=== PATIENT | female | born 1960 | race Caucasian/White ===

== ENCOUNTER → 2016-06-17 | Outpatient (CLI) | payer OTHER ==
--- NOTE | 2016-06-17 15:55 | MR ---
EXAMINATION TYPE: MR shoulder RT wo con DATE OF EXAM: 06/17/2016 3:39 PM COMPARISON: NONE HISTORY: Pain Right Shoulde for 5 years after Pt. Slipped and fell on Ice TECHNIQUE: Multiplanar multispin echo imaging of the right shoulder was performed. FINDINGS: Rotator cuff : There is heterogeneity of the supraspinatus tendon compatible with chronic tendinopath y. Partial tear bursal surface is noted at the critical zone of the supraspinatus tendon. No evidence for full-thickness or retracted tear. Remaining rotator cuff tendons are intact. Bursa: No bursal effusion or thickening is seen. Musculature: There is no muscular tear, contusion, or atrophy. Acromioclavicular joint : There are moderate degenerative changes of the acromioclavicular joint. Sma ll subacromial spur results in impingement. Osseous structures : There are no fractures or regions of abnormal bone marrow signal intensity. Long biceps tendon : The biceps tendon is normally situated within the bicipital groove. There is het erogeneity of the intra-articular portion of the biceps tendon partial tear difficult to exclude. No evidence for full-thickness tear. Glenohumeral Joint fluid : There is no glenohumeral joint effusion. Cartilage and Bone : No focal hyaline cartilage defects are noted. No Hill-Sachs, reverse Hill-Sachs, or bony Bankart lesions are seen. Labrum : There are no SLAP or soft tissue Bankart lesions. No paralabral cysts are seen. OTHER FINDINGS : none IMPRESSION: 1. Partial bursal surface tear with superimposed tendinopathy supraspinatus tendon. 2. Tendinopathy with partial tear difficult to exclude the intra-articular biceps tendon.
== END | disposition home or self-care (01) ==
LOC: RADMRIMAIN 14:34
PROVIDERS: ATTEND Nurse Practitioner Family
DX: M75.81 Other shoulder lesions, right shoulder (principal); M75.21 Bicipital tendinitis, right shoulder

== ENCOUNTER 2016-08-14 06:32 | Day surgery (SDC) | payer OTHER ==
[2016-08-13 08:50] VITALS: BMI 37.0
--- NOTE | 2016-08-13 20:35 | P.GSHP ---
History of Present Illness H&P Date: 08/14/16 CHIEF COMPLAINT: Breast cancer. HISTORY OF PRESENT ILLNESS: The patient is a 55-year-old female diagnosed with invasive breast cancer. She had a Mediport placement. She presents for Port-A-Cath removal upon completion of her chemotherapy. PAST MEDICAL HISTORY: Breast cancer. PAST SURGICAL HISTORY: Breast biopsy. CURRENT MEDICATIONS: See list. ALLERGIES: See list. SOCIAL HISTORY: No active tobacco or alcohol use. FAMILY HISTORY: Noncontributory. REVIEW OF ORGAN SYSTEMS: HEENT: Denies any trouble with vision, hearing or nosebleeds. No difficulty swallowing. BREASTS: Please see above. PHYSICAL EXAMINATION: Vital signs: Stable GENERAL: Well developed female and in no acute distress. Pleasant. HEENT: No sclera icterus. Extraocular movements grossly intact. Moist buccal mucosa. Head is atraumatic, normocephalic. Hears conversational speech. No nasal drainage. NECK: Supple without lymphadenopathy. No JV distention. CHEST: Non-labored respirations and equal bilateral excursions. CARDIOVASCULAR: Regular rate and rhythm. Palpable 2+ radial pulses. ABDOMEN: Nontender. MUSCULOSKELETAL: No clubbing, cyanosis or edema. NEUROLOGIC: No focal or lateralizing signs. PSYCH: Appropriate affect. Alert and oriented to person, place and time. ASSESSMENT: 1. Breast cancer. 2. Need for chemotherapeutic access. PLAN: 1. Agree with Port-A-Cath removal. Past Medical History Past Medical History: Cancer, Diabetes Mellitus, GERD/Reflux, Hyperlipidemia Additional Past Medical History / Comment(s): CA COLON POLYPS, RT BREAST CA, HIATAL HERNIA, NEUROPATHY IN FEET, BONE SPURS., FREQUENT DIARRHEA.,STATES RT BREAST AND AXCILLA INCISION HEALING-NO DRAINAGE., STATES PAIN "ALL OVER" AND PAIN FROM HEEL AND PATELLA SPURS AND RT SHOULDER PAIN FROM PAST INJURY. Cont.'s to have severe neck and R shoulder pain. History of Any Multi-Drug Resistant Organisms: None Reported Past Surgical History: Breast Surgery, Tonsillectomy Additional Past Surgical History / Comment(s): RT PARTIAL MASTECTOMY WITH AXILLARY LYMPH NODE DISECTION. Past Anesthesia/Blood Transfusion Reactions: No Reported Reaction, Motion Sickness Past Psychological History: Anxiety, Depression Smoking Status: Never smoker Past Alcohol Use History: Occasional Past Drug Use History: None Reported - Past Family History Mother Family Medical History: Cancer, Thyroid Disorder Medications and Allergies Home Medications Medication Instructions Recorded Confirmed Type FLUoxetine HCL [PROzac] 40 mg PO BID 01/03/15 08/14/16 History Insulin Glargine [Lantus] 50 unit SQ BID 01/03/15 08/14/16 History traZODone HCL [Desyrel] 100 mg PO HS 01/03/15 08/14/16 History Gabapentin [Neurontin] 400 mg PO BID 01/08/15 08/14/16 History metFORMIN HCL 1,000 mg PO BID 01/08/15 08/14/16 History Ibuprofen [Motrin] 200 - 400 mg PO Q6HR PRN 01/31/15 08/14/16 History Cyclobenzaprine [Flexeril] 10 mg PO DAILY 08/13/16 08/14/16 History Omeprazole [PriLOSEC] 20 mg PO AC-BID 08/13/16 08/14/16 History Oxybutynin Chloride [Ditropan XL] 10 mg PO DAILY 08/13/16 08/14/16 History Sucralfate [Carafate] 1 gm PO QID 08/13/16 08/14/16 History Allergies Allergy/AdvReac Type Severity Reaction Status Date / Time prochlorperazine edisylate Allergy Severe MUSCLE Verified 08/14/16 07:01 [From Compazine] PARALYSIS - TETANUS LIKE SYMPTOMS prochlorperazine maleate Allergy Severe MUSCLE Verified 08/14/16 07:01 [From Compazine] PARALYSIS- TETANUS LIKE SYMPTOMS adhesive AdvReac Unknown Rash/Hives Verified 08/14/16 07:01
[~2016-08-14 06:32] MED LIST: DEXAMETHASONE SOD PHOSPHATE 10 MG/ML 1 ML VIAL IV ONE; HEPARIN SODIUM,PORCINE 5,000 UNIT/ML 1 ML VIAL SQ ONE; HYDROmorphone 1 MG/ML 1 ML SYRINGE IVP PRN; LACTATED RINGERS 1,000 ML IV SCH; MIDAZOLAM 2 MG/2 ML VIAL IV PRN; ONDANSETRON 4 MG/2 ML VIAL IVP ONE; SCOPOLAMINE 1.5MG/72HR PATCH TRANSDERM ONE
[2016-08-14 07:00] VITALS: RESP 18; TEMP 98.7
[2016-08-14] MEDS ORDERED: LIDOCAINE 1% 20 ML VIAL (10MG/ML) FOR IV START SQ ONE (07:16)
[2016-08-14] MEDS ORDERED: BUPIVACAIN-EPI 0.25%-1:200,000 30 ML VIAL SQ ONE ×2 (07:17→07:43)
[2016-08-14 07:24] LABS: Glucose,Whole Blood 195 mg/dL (75-99)
[2016-08-14] MEDS: ceFAZolin 2 GM in SODIUM CHLORIDE 0.9% 100 ML IVPB ONE ×2 (07:30→07:41)
[2016-08-14] MEDS ORDERED: MIDAZOLAM 2 MG/2 ML VIAL ONE (07:30)
[2016-08-14] MEDS ORDERED: PROPOFOL 10 MG/ML 20 ML VIAL IV ONE (07:30)
[2016-08-14] MEDS ORDERED: fentaNYL (PF) 50 MCG/ML 2 ML AMP ONE (07:30)
[2016-08-14] MEDS ORDERED: NALOXONE 0.4 MG/ML 1 ML VIAL IV PRN (07:57)
[2016-08-14] MEDS ORDERED: HYDROmorphone 1 MG/ML 1 ML SYRINGE IVP PRN (07:57)
--- NOTE | 2016-08-14 07:57 | P.OP ---
Date of Procedure: 08/14/16 Description of Procedure: SURGEON: AMARIS RING MD ENERGY TRADER: None. PREOPERATIVE DIAGNOSIS: 1. Breast cancer 2. Chemotherapeutic venous access. POSTOPERATIVE DIAGNOSIS: 1. Breast cancer 2. Chemotherapeutic venous access. OPERATION: Removal of left internal jugular vein Port-A-Cath. ANESTHESIA: MAC with 30 mL 0.25% Marcaine with epinephrine. ESTIMATED BLOOD LOSS: 1 mL SPECIMENS REMOVED: Port-A-Cath COMPLICATIONS: None. INDICATIONS: The patient is a 55-year-old female who completed chemotherapy for her history of breast cancer. She now has elected for removal. Benefits and risks were described. Informed consent was obtained. DESCRIPTION OF PROCEDURE: Patient was brought to the operating room, laid in supine position. After IV sedation the chest wall on the left side was prepped and draped in standard sterile fashion. Prior to incision, a timeout protocol was confirmed with surgical team regarding the patient's name including procedures to be performed. As this was a clean case, no further antibiotics were required. Additionally, early ambulation was encouraged for DVT prophylaxis. Attention was brought to the area of the port site, whereby a total of 30 mL of 0.25% marcaine with epinephrine was infiltrated into the skin for a field block. A #15 blade was used to incise along the previous cicatrix. Electro- Bovie cautery was used to control for hemostasis. Adhesions were lysed around the Mediport. The port was extracted without sequelae. Pressure for 2 minutes was placed along the left internal jugular vein. Hemostasis was checked along the pocket of the Port-A-Cath site. The wound was closed in layers using 3-0 Vicryl for the deep subcutaneous tissues followed by 4-0 Monocryl in a running subcuticular fashion. Dermabond was applied to the skin. Once dried a 4 x 4 followed by a medium size Tegaderm was applied. At the end of the procedure needle, sponge and instrument counts were verified correct by the operating room surgical technician. The patient had tolerated the procedure well and was taken to postanesthesia care in stable condition. FINDINGS: 1. Unremarkable Port-a-cath extraction.
[2016-08-14 08:08] LABS: Glucose,Whole Blood 173 mg/dL (75-99)
[2016-08-14 08:24] VITALS: BP 154/80; PULSE 89
== END 2016-08-14 08:32 | disposition home or self-care (01) ==
LOC: OR 06:32
PROVIDERS: ATTEND Surgery Plastic and Reconstructive Surgery
DX: Z45.2 Encounter for adjustment and management of vascular access device (principal); C50.919 Malignant neoplasm of unspecified site of unspecified female breast; E11.9 Type 2 diabetes mellitus without complications; Z79.4 Long term (current) use of insulin; Z79.84 Long term (current) use of oral hypoglycemic drugs; K21.9 Gastro-esophageal reflux disease without esophagitis; G62.9 Polyneuropathy, unspecified; F41.9 Anxiety disorder, unspecified; F32.9 Major depressive disorder, single episode, unspecified; Z79.899 Other long term (current) drug therapy; Z88.8 Allergy status to other drugs, medicaments and biological substances
CPT/HCPCS: 36590; J2250; J1644; J0690; J2405; J3010; J2704

== ENCOUNTER 2016-10-15 10:40 | Day surgery (SDC) | payer OTHER ==
[2016-10-14 09:03] VITALS: BMI 36.4
[~2016-10-15 10:40] MED LIST changes: -DEXAMETHASONE SOD PHOSPHATE 10 MG/ML 1 ML VIAL IV ONE; -HYDROmorphone 1 MG/ML 1 ML SYRINGE IVP PRN; -LACTATED RINGERS 1,000 ML IV SCH; -MIDAZOLAM 2 MG/2 ML VIAL IV PRN; -ONDANSETRON 4 MG/2 ML VIAL IVP ONE; -SCOPOLAMINE 1.5MG/72HR PATCH TRANSDERM ONE; +ceFAZolin 2 GM in SODIUM CHLORIDE 0.9% 100 ML IVPB ONE
[2016-10-15] MEDS ORDERED: ACETAMINOPHEN IV (For NPO) 1,000 MG in EMPTY BAG 1 BAG IVPB ONE (11:46)
--- NOTE | 2016-10-15 11:48 | P.GSHP ---
History of Present Illness H&P Date: 10/15/16 CHIEF COMPLAINT: Cholecystitis HISTORY OF PRESENT ILLNESS: The patient is a 56-year-old female who presents with history of epigastric including right upper quadrant abdominal pain. She underwent diagnostic studies for her gallbladder. Separately her clinical picture was consistent with cholecystitis. Now she presents for surgical intervention. PAST MEDICAL HISTORY: Please see list PAST SURGICAL HISTORY: Please see list MEDICATIONS: Please see list ALLERGIES: Denies. SOCIAL HISTORY: No illicit drug use or recent tobacco use FAMILY HISTORY: Pertinent for gallbladder disease REVIEW OF ORGAN SYSTEMS: CONSTITUTIONAL: No reports of fevers or chills. HEENT: Denies any troubles with the vision or hearing. PHYSICAL EXAM: VITAL SIGNS: Afebrile vital signs stable GENERAL: Well-developed pleasant in no acute distress. HEENT: No scleral icterus. Extraocular movements grossly intact. Moist buccal mucosa. NECK: Supple without lymphadenopathy. CHEST: Unlabored respirations. Equal bilateral excursions. CARDIOVASCULAR: Regular rate regular rhythm rhythm. Distal 2+ pulses. ABDOMEN: Soft, nondistended. Tender along the epigastrium and right upper quadrant. MUSCULOSKELETAL: No clubbing, cyanosis, or edema. NEURO: Cranial nerves II to XII within normal limits. No focal or lateralizing signs. PSYCH: Alert and oriented to person, place and time. ASSESSMENT: 1. Epigastric and right upper quadrant abdominal pain 2. Chronic cholecystitis 3. Symptomatic gallstones. PLAN: 1. Will need a laparoscopic cholecystectomy possible open. Benefits and risks were described. 2. Heparin for DVT prophylaxis 5000 units. 3. Antibiotic prophylaxis. Past Medical History Past Medical History: Cancer, Diabetes Mellitus, GERD/Reflux, Skin Disorder, Thyroid Disorder Additional Past Medical History / Comment(s): SCRATCH TO ABD FROM CAT STATED SHOWED TO DR RING,HARDY COLON POLYPS, RT BREAST CA- CHEMO AND RADIATION REC, HIATAL HERNIA, NEUROPATHY IN FEET, BONE SPURS., FREQUENT DIARRHEA.,STATES RT BREAST AND AXCILLA INCISION HEALING-NO DRAINAGE., STATES PAIN "ALL OVER" AND PAIN FROM HEEL AND PATELLA SPURS AND RT SHOULDER PAIN FROM PAST INJURY. Cont.'s to have severe neck and R shoulder pain. History of Any Multi-Drug Resistant Organisms: None Reported Past Surgical History: Breast Surgery, Tonsillectomy Additional Past Surgical History / Comment(s): RT PARTIAL MASTECTOMY WITH AXILLARY LYMPH NODE DISSECTION. Past Anesthesia/Blood Transfusion Reactions: No Reported Reaction Past Psychological History: Anxiety, Depression Smoking Status: Never smoker Past Alcohol Use History: Occasional Past Drug Use History: None Reported - Past Family History Father Family Medical History: No Reported History Mother Family Medical History: Cancer, Thyroid Disorder Additional Family Medical History / Comment(s): BREAST Medications and Allergies Home Medications Medication Instructions Recorded Confirmed Type FLUoxetine HCL [PROzac] 40 mg PO BID 01/03/15 10/15/16 History Insulin Glargine [Lantus] 40 unit SQ HS 01/03/15 10/15/16 History traZODone HCL [Desyrel] 200 mg PO HS 01/03/15 10/15/16 History Gabapentin [Neurontin] 400 mg PO BID 01/08/15 10/15/16 History metFORMIN HCL 850 mg PO TID 01/08/15 10/15/16 History Ibuprofen [Motrin] 800 mg PO TID 01/31/15 10/15/16 History Omeprazole [PriLOSEC] 20 mg PO AC-BID 08/13/16 10/15/16 History Oxybutynin Chloride [Ditropan XL] 10 mg PO DAILY 08/13/16 10/15/16 History Sucralfate [Carafate] 1 gm PO QID 08/13/16 10/15/16 History Ergocalciferol [Vitamin D2] 50,000 unit PO Q7D 10/14/16 10/15/16 History Hydrocodone/Acetaminophen 1 tab PO DAILY PRN 10/14/16 10/15/16 History [Hydrocodon-Acetaminoph 7.5-325] Levothyroxine Sodium [Synthroid] 25 mcg PO QAM 10/14/16 10/15/16 History Allergies Allergy/AdvReac Type Severity Reaction Status Date / Time prochlorperazine edisylate Allergy Severe MUSCLE Verified 10/15/16 11:29 [From Compazine] PARALYSIS - TETANUS LIKE SYMPTOMS prochlorperazine maleate Allergy Severe MUSCLE Verified 10/15/16 11:29 [From Compazine] PARALYSIS- TETANUS LIKE SYMPTOMS adhesive AdvReac Unknown Rash/Hives,"paper Verified 10/15/16 11:29 tape is ok" Surgical - Exam Vital Signs Temp Pulse Resp BP Pulse Ox 99.1 F 64 16 151/86 97 10/15/16 11:42 10/15/16 11:42 10/15/16 11:42 10/15/16 11:42 10/15/16 11:42
--- NOTE | 2016-10-15 11:50 | P.HPADDEND ---
H&P Addendum H&P Addendum Date: 10/15/16 Robotic-assisted laparoscopic cholecystectomy also discussed.
[2016-10-15 11:56] LABS: Glucose,Whole Blood 126 mg/dL (75-99)
[2016-10-15] MEDS ORDERED: LACTATED RINGERS 1,000 ML IV ONE (11:57)
[2016-10-15] MEDS ORDERED: LIDOCAINE 1% 20 ML VIAL (10MG/ML) FOR IV START INTRADERMA ONE (11:58)
[2016-10-15] MEDS ORDERED: ONDANSETRON 4 MG/2 ML VIAL IVP ONE (12:01)
[2016-10-15] MEDS ORDERED: DEXAMETHASONE SOD PHOSPHATE 10 MG/ML 1 ML VIAL IV ONE (12:01)
[2016-10-15 12:05] LABS: Basophils % (A) 1 %; CH 27.9; CHCM 32.4; Eosinophils # (A) 0.2 k/uL (0-0.7); Eosinophils % (A) 2 %; HCT 39.1 % (34.0-46.0); HGB 12.5 gm/dL (11.4-16.0); Luc # (Auto) 0.11; Luc % (Auto) 1; Lymphocytes # (A) 1.4 k/uL (1.0-4.8); Lymphocytes % (A) 17 %; MCH 27.6 pg (25.0-35.0); MCV 86.4 fL (80.0-100.0); Mean Platelet Volume 6.4; Monocytes # (A) 0.3 k/uL (0-1.0); Monocytes % (A) 4 %; Neutrophils # (A) 6.1 k/uL (1.3-7.7); Neutrophils % (A) 75 %; RBC 4.53 m/uL (3.80-5.40); RDW 14.5 % (11.5-15.5); WBC 8.1 k/uL (3.8-10.6); WBC (Perox) 8.61
[2016-10-15 12:21] LABS: ALT 41 U/L (9-52); AST 32 U/L (14-36); Alkaline Phosphatase 88 U/L (38-126); Anion Gap 10 mmol/L; Blood Urea Nitrogen 10 mg/dL (7-17); Calcium 9.7 mg/dL (8.4-10.2); Carbon Dioxide 26 mmol/L (22-30); Chloride 105 mmol/L (98-107); Glucose 117 mg/dL (74-99); Non-African American GFR(MDRD) >60 (>60 ml/min/1.73 sqM); Potassium 4.3 mmol/L (3.5-5.1); Sodium 141 mmol/L (137-145); Total Bilirubin 0.7 mg/dL (0.2-1.3); Total Protein 7.3 g/dL (6.3-8.2)
[2016-10-15] MEDS ORDERED: PROPOFOL 10 MG/ML 20 ML VIAL IV ONE (13:04)
[2016-10-15] MEDS ORDERED: GLYCOPYRROLATE 0.2 MG/ML 2 ML VIAL ONE (13:04)
[2016-10-15] MEDS ORDERED: MIDAZOLAM 2 MG/2 ML VIAL ONE (13:04)
[2016-10-15] MEDS ORDERED: LIDOCAINE 1% INJ 10MG/ML (20 ML MDV) ONE (13:04)
[2016-10-15] MEDS ORDERED: SUCCINYLCHOLINE CHLORIDE 100 MG/5 ML SYR IV ONE (13:04)
[2016-10-15] MEDS ORDERED: ROCURONIUM BROMIDE 10 MG/ML 10 ML VIAL IV ONE (13:04)
[2016-10-15] MEDS ORDERED: NEOSTIGMINE 1 MG/ML 10 ML VIAL ONE (13:04)
[2016-10-15] MEDS ORDERED: fentaNYL (PF) 50 MCG/ML 2 ML AMP ONE (13:04)
[2016-10-15] MEDS ORDERED: BUPIVACAIN-EPI 0.25%-1:200,000 30 ML VIAL SQ ONE (13:40)
[2016-10-15] MEDS ORDERED: HYDROcodone/APAP 5-325MG 1 EACH TAB PO PRN (14:50)
[2016-10-15] MEDS ORDERED: NALOXONE 0.4 MG/ML 1 ML VIAL IV PRN (14:50)
[2016-10-15 14:59] VITALS: TEMP 98.4
[2016-10-15 15:02] VITALS: RESP 16
[2016-10-15] MEDS: HYDROmorphone 1 MG/ML 1 ML SYRINGE IVP ONE ×4 (15:05→15:27)
--- NOTE | 2016-10-15 15:05 | P.OP ---
Date of Procedure: 10/15/16 Description of Procedure: SURGEON: AMARIS RING MD RABBIT DRESSER: MICHAEL BASILIO PREOPERATIVE DIAGNOSES: 1. Chronic cholecystitis. 2. Diabetes type II, insulin-dependent, controlled 3. Morbid obesity due to excess calories. 4. Body mass index 36.4 5. Right upper quadrant abdominal pain. 6. Personal history of breast cancer, status post chemotherapy. POSTOPERATIVE DIAGNOSES: 1. Chronic cholecystitis. 2. Diabetes type II, insulin-dependent, controlled 3. Morbid obesity due to excess calories. 4. Body mass index 36.4 5. Right upper quadrant abdominal pain. 6. Personal history of breast cancer, status post chemotherapy. 7. Hepatomegaly. OPERATION: Robotic-assisted laparoscopic cholecystectomy, multiport ESTIMATED BLOOD LOSS: 5 mL. SPECIMENS REMOVED: Gallbladder. COMPLICATIONS: None. OPERATIVE FINDINGS: 1. Liver surface unremarkable. INDICATIONS: The patient is a 56-year-old female who presents with chronic cholelcystitis. Surgical intervention with a laparoscopic cholecystectomy was described at length including injury to the biliary tree, bleeding, infection, need for further surgery. Informed consent was obtained. Robotic assisted laparoscopic approach was described. Benefits and risks of the procedure including but not limited to bleeding, infection, injury to the biliary tree was described. Informed consent was obtained. DESCRIPTION OF PROCEDURE: Patient was brought to the operating room, placed in supine position. After general induction, the abdomen had been prepped and draped in standard sterile fashion. The robotic da Ag SI system was primed. After a timeout protocol was performed, the patient had been prepped and draped in standard sterile fashion. The robot was docked along the right lateral abdomen. The patient was repositioned in reverse Trendelenburg position. Please note prior to docking of the robot; however, a 5 mm 0 degrees laparoscopic trocar entry was performed along the epigastrium. Next, two 8 mm robotic ports were placed along the right upper abdomen. The camera 12-mm port was exchanged along the epigastrium. Another 8 mm port was placed along the left upper abdominal wall. Please note that the ports were placed at least 15 cm away from the target anatomy of the gallbladder. The liver was fairly large and heavily padded complex tear case. Using a grasper for arm 3, a long dissecting grasper for arm 2, including hook cautery for arm 1, the robotic system was docked and primed as described. Instruments were interchanged by the medical assistant internal medicine including hook cautery, Bovie cautery scissors and clip appliers. I had sat at the console. Adhesions along the infundibulum of the gallbladder and addressed using hook cautery including blunt dissection with a long forceps grasper. Additionally, the cystic artery was found anterior to the cystic duct. A small liver remnant was found encircling the body of the gallbladder. The gallbladder fundus was retracted over the dome of the liver. Initial attention was brought to the infundibulum which was gently retracted in the inferior lateral approach. Using a long forceps grasper, the cystic duct including the cystic artery were carefully skeletonized. Using a clip forepart rasper, 2 clips were placed proximally, and 2 clips were placed distally along the cystic duct and then cut with Bovie cautery. Again care was taken to avoid any injury to the biliary tree as the common bile duct was visualized during this portion of dissection. Next, the cystic artery was cauterized the cut. Electro-Bovie cautery was used to remove the gallbladder from the hepatic fossa. Decompression of the gallbladder did occur. Hemostasis was checked and found to be adequate. The robot was undocked. I re-scrubbed into the case. Using a 10 mm Endo Catch bag via the 12 mm port, the specimen was removed from the abdominal cavity. The 12 mm port site was oversewn using 0 Vicryl including a Jermaine [place] as well. Along the right upper quadrant, 1 L of normal saline was to irrigate the abdominal cavity until the aspirant was clear. All pneumoperitoneum instruments were evacuated from the abdominal cavity. The incisions were reapproximated using 4-0 Monocryl in an interrupted subcuticular fashion. Please note along the trocar sites, local anesthetic was placed as a field block prior to insertion of all instruments. Gauze including tape placed over the incisions with her ALLERGY to Dermabond. At the end of the procedure needle, sponge, and instrument count had been verified correct by the certified surgical tech/first assistant. The patient was transferred to postanesthesia care unit in stable condition. Plan - Discharge Summary Discharge Medication List FLUoxetine HCL [PROzac] 40 mg PO BID 01/03/15 [History] Insulin Glargine [Lantus] 40 unit SQ HS 01/03/15 [History] traZODone HCL [Desyrel] 200 mg PO HS 01/03/15 [History] Gabapentin [Neurontin] 400 mg PO BID 01/08/15 [History] metFORMIN HCL 850 mg PO TID 01/08/15 [History] Ibuprofen [Motrin] 800 mg PO TID 01/31/15 [History] Omeprazole [PriLOSEC] 20 mg PO AC-BID 08/13/16 [History] Oxybutynin Chloride [Ditropan XL] 10 mg PO DAILY 08/13/16 [History] Sucralfate [Carafate] 1 gm PO QID 08/13/16 [History] Ergocalciferol [Vitamin D2] 50,000 unit PO Q7D 10/14/16 [History] Hydrocodone/Acetaminophen [Hydrocodon-Acetaminoph 7.5-325] 1 tab PO DAILY PRN [History] Levothyroxine Sodium [Synthroid] 25 mcg PO QAM 10/14/16 [History]
[2016-10-15] MEDS ORDERED: KETOROLAC 30 MG/ML 1 ML VIAL IVP ONE (15:11)
[2016-10-15] MEDS ORDERED: INSULIN LISPRO (humaLOG) 300 UNIT/3 ML VIAL SQ ONE (16:03)
[2016-10-15 16:21] VITALS: BP 145/74; PULSE 78
[2016-10-15 16:26] LABS: Glucose,Whole Blood 243 mg/dL (75-99)
== END 2016-10-15 16:59 | disposition home or self-care (01) ==
LOC: OR 10:40
PROVIDERS: ATTEND Surgery Plastic and Reconstructive Surgery
DX: K81.1 Chronic cholecystitis (principal); E11.9 Type 2 diabetes mellitus without complications; Z79.4 Long term (current) use of insulin; E66.01 Morbid (severe) obesity due to excess calories; Z68.35 Body mass index [BMI] 35.0-35.9, adult; Z85.3 Personal history of malignant neoplasm of breast; Z92.21 Personal history of antineoplastic chemotherapy; Z85.038 Personal history of other malignant neoplasm of large intestine; R16.0 Hepatomegaly, not elsewhere classified; K21.9 Gastro-esophageal reflux disease without esophagitis; E07.9 Disorder of thyroid, unspecified; Z79.1 Long term (current) use of non-steroidal anti-inflammatories (NSAID); Z79.899 Other long term (current) drug therapy; Z88.8 Allergy status to other drugs, medicaments and biological substances; Z91.09 Other allergy status, other than to drugs and biological substances
CPT/HCPCS: 47562; 88304; 80053; 85025; J2250; J1644; J1100; J2710; J0690; J2405; J2001; J3010; J1885; J1170; J0131; J0330; J2704

== ENCOUNTER → 2018-01-17 | Outpatient (CLI) | payer OTHER ==
--- NOTE | 2018-01-17 22:43 | MR ---
EXAMINATION TYPE: MR brain wo/w con DATE OF EXAM: 01/17/2018 COMPARISON: NONE HISTORY: Memory loss (R 41.3) per order. Chronic neck and back pain with dizziness per patient. Histo ry of breast cancer. TECHNIQUE: Multiplanar, multisequence images of the brain and brainstem is performed without and with IV contras t, utilizing Neck and Back Pain, Gadavist 12ml mL intravenous Gadavist . FINDINGS: Diffusion weighted images demonstrate no evidence of a recent infarct or other diffusion ab normality. There is no extra-axial fluid collection or significant white matter signal abnormality. The ventricular system and cisternal spaces are normal in size and appearance. The brain volume is age appropriate. Midline structures demonstrate normal morphology. The craniocervical junction appears within normal limits. Post contrast images demonstrate no abnormal enhancement. The dural venous sinuses appear pa tent. The visualized sinuses are clear and the globes are intact. Some increased fluid signal right m astoid air cells is present axial image 7. IMPRESSION: No evidence of a recent infarct. No suspicious enhancing masses identified. Possible righ t-sided mild mastoiditis, clinical correlation recommended otherwise unremarkable study.
== END | disposition home or self-care (01) ==
LOC: RADMRIMAIN 16:25
PROVIDERS: ATTEND Psychiatry & Neurology Neurology
DX: R41.3 Other amnesia (principal); Z13.89 Encounter for screening for other disorder
CPT/HCPCS: 82565; 70553; 36415; A9581

== ENCOUNTER → 2018-02-21 | Outpatient (CLI) | payer OTHER ==
[2018-02-17 15:44] VITALS: BMI 37.3
[2018-02-21 13:56] VITALS: BP 124/74; PULSE 81; RESP 16
--- NOTE | 2018-02-21 14:23 | P.CONS ---
History of Present Illness - Reason for Consult Consult date: 02/21/18 - Chief Complaint Widespread body pain but mostly neck and lower back pain - History of Present Illness This is a 57-year-old female with history of chronic neck and lower back pain. She also has a history of breast carcinoma that was treated surgically and by chemotherapy and radiation in 2016. The patient had met seems to be cervical medial branch block by a different clinic clinic which gave her good relief of pain however the patient changed her pain care doctor to her "dislike" of the pain physician. The patient states that her pain gets worse by activities and improves by rest. The pain wakes her up at night. She also feels numbness in her legs below the knee level, she does mention that she has diabetes and possible diuretic peripheral neuropathy. Her neck pain radiates to the shoulders and her lower back pain radiates to the feet bilaterally. She does have history of stress incontinence for urine. Past Medical History Past Medical History: Cancer, Diabetes Mellitus, GERD/Reflux, Hypertension, Thyroid Disorder Additional Past Medical History / Comment(s): HX CA COLON POLYPS, RT BREAST CA- CHEMO AND RADIATION, HIATAL HERNIA, NEUROPATHY IN FEET, BONE SPURS, FREQUENT DIARRHEA. STATES PAIN "ALL OVER" AND PAIN FROM HEEL AND PATELLA SPURS AND RT SHOULDER PAIN FROM PAST INJURY. Cont.'s to have severe neck AND BACK PAIN , URINARY INCONTINENCE History of Any Multi-Drug Resistant Organisms: None Reported Past Surgical History: Breast Surgery, Cholecystectomy, Tonsillectomy Additional Past Surgical History / Comment(s): RT PARTIAL MASTECTOMY WITH AXILLARY LYMPH NODE DISSECTION. Past Anesthesia/Blood Transfusion Reactions: No Reported Reaction Smoking Status: Never smoker - Past Family History Father Family Medical History: No Reported History Mother Family Medical History: Cancer, Thyroid Disorder Additional Family Medical History / Comment(s): BREAST Medications and Allergies Home Medications Medication Instructions Recorded Confirmed Type FLUoxetine HCL [PROzac] 40 mg PO QAM 01/03/15 02/21/18 History Insulin Glargine [Lantus] 50 unit SQ HS 01/03/15 02/21/18 History traZODone HCL [Desyrel] 200 mg PO HS 01/03/15 02/21/18 History Omeprazole [PriLOSEC] 20 mg PO AC-BID 08/13/16 02/21/18 History Oxybutynin Chloride [Ditropan XL] 10 mg PO DAILY 08/13/16 02/21/18 History Ergocalciferol [Vitamin D2] 50,000 unit PO WE 10/14/16 02/21/18 History Hydrocodone/Acetaminophen 1 tab PO BID 10/14/16 02/21/18 History [Hydrocodon-Acetaminoph 7.5-325] Levothyroxine Sodium [Synthroid] 25 mcg PO QAM 10/14/16 02/21/18 History Aspirin [Adult Low Dose Aspirin EC] 81 mg PO DAILY 02/17/18 02/21/18 History Gabapentin 600 mg PO QID 02/17/18 02/21/18 History Insulin Aspart [NovoLOG Flexpen] 15 units SQ AC-TID 02/17/18 02/21/18 History Metoprolol 25 mg PO DAILY 02/17/18 02/21/18 History lamoTRIgine [LaMICtal] 150 mg PO DAILY 02/17/18 02/21/18 History Allergies Allergy/AdvReac Type Severity Reaction Status Date / Time prochlorperazine edisylate Allergy Severe MUSCLE Verified 02/21/18 13:42 [From Compazine] PARALYSIS - TETANUS LIKE SYMPTOMS prochlorperazine maleate Allergy Severe MUSCLE Verified 02/21/18 13:42 [From Compazine] PARALYSIS- TETANUS LIKE SYMPTOMS adhesive AdvReac Unknown Rash/Hives,"paper Verified 02/21/18 13:42 tape is ok" Physical Exam Vitals: Vital Signs Pulse Resp BP Pulse Ox 02/21/18 13:46 81 16 124/74 94 L - Constitutional General appearance: morbidly obese - EENT Eyes: PERRLA - Respiratory Respiratory: bilateral: CTA - Cardiovascular Rhythm: regular Heart sounds: normal: S1, S2 - Neurologic Neuro exam of the upper extremities showed normal and symmetrical muscle strength however she has absent right biceps reflex and normal left biceps reflex and normal triceps reflexes bilaterally. She has decreased range of motion of the cervical spine due to her pain Compression test of the cervical spine did not elicit any radicular pain She has tenderness in the cervical paravertebral area and more in the trapezius muscles bilaterally Neuro exam of the lower extremities showed normal and symmetrical deep tendon reflexes except for absent right ankle reflex. She has normal muscle strength bilaterally. She has tenderness in the lumbar paravertebral area bilaterally more on the right side than the left side. Straight leg raising test negative bilaterally. Neurologic: CNII-XII intact - Psychiatric Psychiatric: A&O x's 3, appropriate affect, intact judgment & insight Assessment and Plan Assessment: 57-year-old female with chronic widespread body pain but mostly in the neck and lower back and the following diagnoses Morbid obesity diabetes Possible peripheral diabetic neuropathy History of breast carcinoma with treatment with chemotherapy and radiation in 2016 Lumbar and cervical spondylosis without myelopathy Plan: The patient may benefit from getting diagnostic cervical and lumbar medial branch blocks, however she is in the middle of physical therapy for her neck and lower back pain and I would like her to finish her physical therapy before we reevaluate her for the above-mentioned procedures. Also meanwhile we will try to get her medical records from her previous pain clinic. The patient uses [facility] for her pain and she gets prescription from her family physician for that.
== END | disposition home or self-care (01) ==
LOC: PNWHC3 13:07
PROVIDERS: ATTEND Anesthesiology
DX: G89.29 Other chronic pain (principal); M54.5 Low back pain; M54.2 Cervicalgia; M47.816 Spondylosis without myelopathy or radiculopathy, lumbar region; M47.812 Spondylosis without myelopathy or radiculopathy, cervical region; E66.01 Morbid (severe) obesity due to excess calories; E11.9 Type 2 diabetes mellitus without complications; K21.9 Gastro-esophageal reflux disease without esophagitis; N39.3 Stress incontinence (female) (male); E07.9 Disorder of thyroid, unspecified; K44.9 Diaphragmatic hernia without obstruction or gangrene; I10 Essential (primary) hypertension; Z92.21 Personal history of antineoplastic chemotherapy; Z92.3 Personal history of irradiation; Z85.038 Personal history of other malignant neoplasm of large intestine; Z90.49 Acquired absence of other specified parts of digestive tract; Z90.89 Acquired absence of other organs; Z85.3 Personal history of malignant neoplasm of breast; Z90.11 Acquired absence of right breast and nipple; Z79.4 Long term (current) use of insulin; Z79.891 Long term (current) use of opiate analgesic; Z79.82 Long term (current) use of aspirin; Z79.899 Other long term (current) drug therapy; Z88.8 Allergy status to other drugs, medicaments and biological substances; Z91.048 Other nonmedicinal substance allergy status; Z68.37 Body mass index [BMI] 37.0-37.9, adult
CPT/HCPCS: 99211

== ENCOUNTER → 2018-03-23 | Outpatient (CLI) | payer OTHER ==
[2018-03-23 15:35] VITALS: BP 139/71; PULSE 70; RESP 18; TEMP 98.4
--- NOTE | 2018-03-24 14:52 | P.PAINPG ---
Subjective Progress Note Date: 03/23/18 At this is 57 years old female who was seen a few weeks ago at our pain clinic, and she was taken was with cervical spondylosis and lumbar spondylosis, she came in for follow-up visit and she brought with her her medical records, and I reviewed her medical record showed patient had nerve conduction study and showed the patient had diffuse motor and sensory polyneuropathy in the lower extremities, and L4 V nerve root irritation, and patient had also bilateral median nerve compression, and C4 5 radiculopathy, patient had the C4 5 radiculopathy and cervical spondylosis, she had MRI of the lumbar spine done at [facility] and it showed multilevel L2-3 and L3 4 L4 5 and L5-S1 lumbar facet arthroplasty lumbar bulging disc disease, MRI of the cervical spine showed C3 4 C4 5 centrally bulging disc disease and cervical facet arthropathy, patient had cervical epidural steroid injections done at [facility] on multiple occasions and she had a good result and her neck pain improved, she is on a course of physical therapy and she had some improvement of her neck pain, she continued to have some numbness and tingling sensations she is diagnosed with diabetic neuropathy, and 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 She denies any motor or sensory deficit she continue to use pain medication, [place] 7.5/325 twice a day and Neurontin 600 mg every 6 hours, she denies any side effect of the medication and she reported that currently most of her pain in the low back area, the pain is constant and increases with any activity , the intensity of the pain interfering with her quality of life, the pain intensity is 6/10 increased to 10 over 10 with activity Objective - Vital Signs Vital signs: Vital Signs Temp 98.4 F 03/23/18 15:24 Pulse 70 03/23/18 15:24 Resp 18 03/23/18 15:24 BP 139/71 03/23/18 15:24 Pulse Ox Intake & Output 03/23/18 03/24/18 03/24/18 18:59 06:59 18:59 Weight 120.202 kg - Exam Physical Examinations : 1-Constitutiona : Cooperative , not in acute distress . 2-HEENT : nech ; supple , no Lymphadenopathy , normal thyroid size . eyes : no ptosis , no icterus, no photophobia . ENT : normal of hearing , normal oropharynx , no Thrush . 3- Respiratory : Chest clear to auscultations Bilaterally , no wheezing , no Rhonchi . 4- Cardiovascular : regular rate and rhythem , S1 , S2 , no S3 , no S4. 5- Gastrointestinal : abdomen soft no tenderness , bowel sounds , no organomegally . 6- Genitourinary : Defferred . 7- neurologic : Cranial nerve II to XII intact , no focal neurological deffecit . 8-psychatric : alert , oriented X 3 , appropriate affect , intact judgment and insight . 9-Lymphatic : no Lymphadenopathy . 10- musculoskeltal : Cervical Spine motor stregnth in the deltoid and biceps, normal right side , normal Left side motor stregnth biceps and the wrist extensors normal right side ,normal left side . motor stregnth in the triceps muscle . normal Right side , normal Left side deep tendon reflexes normal at the biceps , normal at Brachioradialis , normal at triceps. positive cervical facet loading test . Lumber spine moter stegnth lower extremities , thigh and legs 5/5 Right side , 5/5 Left side deep tendon reflexes : normal Knee Jerk , normal ankle Jerk positive lumber facet Loading Test Range of motion of the lumbar spine Flexion 30 degrees, extension 10 degrees strait leg raising test , positive at 60 degree Fabere test negative bilaterally Sever tenderness over the Sacroiliac joint on the R and L sides Assessment and Plan Plan: Assessment and plan= 1-cervical spondylosis Pain improved after cervical epidural steroid injections done at [facility]. 2-lumbar spondylosis with lumbar facet arthropathy without myelopathy. Patient will be scheduled for diagnostic medial branch block lumbar area at L3-4/L4 5/L5-S1 and if she had a good result we will do the radiofrequency ablation 3-diabetic neuropathy Patient currently getting prescription refills from her primary care , [place] 7.5/325 twice a day and Neurontin 600 mg every 6 hours she denies any side effect of the medication Time with Patient: Less than 30 PQRS Measure Charge Sheet Measure #130: Documentation of Current Meds in Medical Chart: Patient's medications documented in chart Measure #226: Tobacco Use: Screen & Cessation Intervention: Pt not a tobacco user Measure #111: Pneumonia Vaccination: Pneumococcal vaccine NOT administered or previously given Measure #47: Advance Care Plan: Advance care planning discussed & documented, pt chose/unable to give Measure #412: Opioid Treatment Agreement: No documentation of signed opioid treatment agreement Measure #408: Opioid Therapy Follow-up Evaluation: Patient had NO f/u eval minimum every 3 months during opioid therapy Measure #317: Preventitive Care & Scrn High Bld Press & F/U: Normal blood pressure, f/u not required Measure #128: Body Mass Index (BMI) Screening & Follow-up: BMI documented ABOVE normal parameters - f/u documented Measure #131: Pain Assessment & Follow-up: Follow-up scheduled Measure #431: Unhealthy Alcohol Use Preventative Care & Scrn: Patient not identified as an unhealthy alcohol user PQRS Narrative: Smoking Status Never smoker Do You Want the Pneumonia No Vaccine AT THIS TIME? Blood Pressure 139/71 Pain Intensity [Lower Back] 7 Hx Alcohol Use (MH) Yes: social Home Medications: Ambulatory Orders FLUoxetine HCL [PROzac] 40 mg PO QAM 01/03/15 Insulin Glargine [Lantus] 50 unit SQ HS 01/03/15 traZODone HCL [Desyrel] 200 mg PO HS 01/03/15 Omeprazole [PriLOSEC] 20 mg PO AC-BID 08/13/16 Oxybutynin Chloride [Ditropan XL] 10 mg PO DAILY 08/13/16 Ergocalciferol [Vitamin D2] 50,000 unit PO WE 10/14/16 Hydrocodone/Acetaminophen [Hydrocodon-Acetaminoph 7.5-325] 1 tab PO BID Levothyroxine Sodium [Synthroid] 25 mcg PO QAM 10/14/16 Aspirin [Adult Low Dose Aspirin EC] 81 mg PO DAILY 02/17/18 Gabapentin 600 mg PO QID 02/17/18 Insulin Aspart [NovoLOG Flexpen] 15 units SQ AC-TID 02/17/18 Metoprolol 25 mg PO DAILY 02/17/18 lamoTRIgine [LaMICtal] 150 mg PO DAILY 02/17/18 Furosemide [Lasix] 20 mg PO DAILY 03/23/18 Enalapril Maleate [Vasotec] 2.5 mg PO DAILY 03/24/18 Furosemide [Lasix] 20 mg PO DAILY PRN 03/24/18 Controlled Substance Measures - Controlled Substance Measures Is patient prescribed a controlled substance at discharge?: No When asked, does pt state using other controlled substances?: No If prescribed controlled substance>3 days was MAPS reviewed?: No If Rx opioid, was Start Talking consent form obtained?: No If opioid is for acute pain is fill amount 7 days or less?: No Was information provided regarding opioid addiction?: No
== END | disposition home or self-care (01) ==
LOC: PNWHC3 14:30
PROVIDERS: ATTEND Specialist
DX: M50.21 Other cervical disc displacement, high cervical region (principal); M47.22 Other spondylosis with radiculopathy, cervical region; M46.82 Other specified inflammatory spondylopathies, cervical region; M51.26 Other intervertebral disc displacement, lumbar region; M47.816 Spondylosis without myelopathy or radiculopathy, lumbar region; M46.86 Other specified inflammatory spondylopathies, lumbar region; E11.42 Type 2 diabetes mellitus with diabetic polyneuropathy; G62.0 Drug-induced polyneuropathy; Z85.3 Personal history of malignant neoplasm of breast; Z79.891 Long term (current) use of opiate analgesic; Z79.899 Other long term (current) drug therapy; Z98.890 Other specified postprocedural states; Z79.4 Long term (current) use of insulin; Z79.82 Long term (current) use of aspirin
CPT/HCPCS: 99211

== ENCOUNTER 2018-04-21 09:03 | Day surgery (SDC) | payer OTHER ==
[2018-04-18 15:25] VITALS: BMI 38.7
[~2018-04-21 09:03] MED LIST changes: -HEPARIN SODIUM,PORCINE 5,000 UNIT/ML 1 ML VIAL SQ ONE; +SODIUM CHLORIDE 0.9% 500 ML 500 ML IV SCH; -ceFAZolin 2 GM in SODIUM CHLORIDE 0.9% 100 ML IVPB ONE
[2018-04-21 09:34] LABS: Glucose,Whole Blood 216 mg/dL (75-99)
[2018-04-21 09:35] VITALS: RESP 16; TEMP 98.1
--- NOTE | 2018-04-21 10:16 | P.PCN ---
Date of Procedure: 04/21/18 Surgeon: Ozzie Marino Pathology: none sent Condition: stable Disposition: PACU Description of Procedure: PREOPERATIVE DIAGNOSIS : 1- Lumbar spondylosis with Facet Arthropathy without myelopathy . 2- Lumber degenerative disc disease POSTOPERATIVE DIAGNOSIS: 1- Lumbar spondylosis with Facet Arthropathy without myelopathy . 2- Lumber degenerative disc disease PROCEDURE: Diagnostic bilateral L3 -4 , L4 -5 , and L5-S1 medial branch block under fluoroscopy ANESTHESIA: Local with 1% lidocaine; IV moderate conscious sedation with Versed 2 mg . EBL: Negligible COMPLICATION: None. PROCEDURE INDICATION: Chronic low back pain secondary to Facet arthropathy unresponsive to conservative treatment. PROCEDURE DESCRIPTION: the patient was seen and identified in the preop holding area , risks and benefits and possible complications of the procedure and alternatives were discussed with the patient, and the patient agreed to proceed with the procedure and signed the consent. IV was started and vital signs monitored during the procedure and fluoroscopy was used to maximize the benefit and accuracy of the needle placement, sedation was given to decrease patient anxiety, patient was taken to the procedure room and placed in prone position vital signs monitored. The patient was brought into the procedure room and placed in prone position. Skin was prepped with Chloraprep and draped in a sterile manner. Lidocaine 1 % was used to numb the skin up at the target points that were chosen as follows : at the L5-S1 level which corresponds to the dorsal ramus of L5 the target points were at the superior medial aspect of the sacral ala on each side of the spine on the AP view of fluoroscopy, and for theL2, L3 and L4 medial branches the target points were the connection between the transverse process and the superior to go process of L3, L4 and L5 respectively on the oblique views of fluoroscopy. I used 22-gauge 5 inch Quincke spinal needles for this procedure and after contacting bone at the target points mentioned above I injected 1 mL of ropivacaine 0.5% PF . No steroids were given to this patient because of her hyperglycemia preoperatively. Patient tolerated procedure well. At the end of the procedure the needles removed and a bandage applied after the skin was cleaned the cleaning solution. patient was then taken to the recovery room in stable condition and monitored in the recovery room for 20-30 minutes and discharged home in stable condition after discharge criteria met .
[2018-04-21] MEDS ORDERED: IV FLUID CONTINUATION 200 ML IV ONE (10:20)
--- NOTE | 2018-04-21 10:34 | FL ---
EXAMINATION TYPE: FL guided pain mgmt statistic DATE OF EXAM: 04/21/2018 HISTORY: Pain Bilateral lumbar facets, 11 seconds fluro time
[2018-04-21 10:40] VITALS: BP 128/60; PULSE 64
[2018-04-21 10:49] LABS: Glucose,Whole Blood 203 mg/dL (75-99)
== END 2018-04-21 11:01 | disposition home or self-care (01) ==
LOC: ORPAIN 09:03
PROVIDERS: ATTEND Anesthesiology
DX: M47.816 Spondylosis without myelopathy or radiculopathy, lumbar region (principal); G89.29 Other chronic pain; M51.36 Other intervertebral disc degeneration, lumbar region; Z88.8 Allergy status to other drugs, medicaments and biological substances; Z91.048 Other nonmedicinal substance allergy status; E11.65 Type 2 diabetes mellitus with hyperglycemia; E66.9 Obesity, unspecified; Z68.38 Body mass index [BMI] 38.0-38.9, adult
CPT/HCPCS: 64493; 64494; 64495; J2250; J2001; 99152

== ENCOUNTER 2018-05-09 08:34 | Day surgery (SDC) | payer OTHER ==
[2018-05-05 09:07] VITALS: BMI 38.7
[2018-05-09 09:04] LABS: Glucose,Whole Blood 274 mg/dL (75-99)
[2018-05-09 09:07] VITALS: BP 128/58; PULSE 66; RESP 16; TEMP 98.5
[2018-05-09] MEDS ORDERED: LACTATED RINGERS 1,000 ML IV ONE (09:08)
[2018-05-09] MEDS ORDERED: LIDOCAINE 1% 20 ML VIAL (10MG/ML) FOR IV START INTRADERMA ONE (09:08)
--- NOTE | 2018-05-09 09:18 | P.PN ---
Progress Note - Text Progress Note Date: 05/09/18 Procedure canceled. Patient presenting today for her second medial branch block. She reports that her VAS went down from 8-6 the last medial branch block did not report very good relief. She is inquiring about whether or not she needs repeated today. She continues to have low back pain despite having medial branch block. I advised that we probably would not repeat a second medial branch blocks and she did not have good relief. I advised her follow-up in the clinic and we should go from there to figure out what else may be causing her pain.
== END 2018-05-09 09:35 | disposition home or self-care (01) ==
LOC: ORPAIN 08:34
PROVIDERS: ATTEND Hospitalist
DX: M54.5 Low back pain (principal); Z53.8 Procedure and treatment not carried out for other reasons

== ENCOUNTER → 2018-05-25 | Outpatient (CLI) | payer OTHER ==
[2018-05-25 12:28] VITALS: BP 143/78; PULSE 67; RESP 16
--- NOTE | 2018-05-25 13:04 | P.PN ---
Subjective Progress Note Date: 05/25/18 Lamar presents today for follow-up. She was last seen on procedure today after having medial branch block. On the day of the procedure she reported that she did not have a very good relief from the medial branch block previously so we did not repeat a second set her up for a follow-up. Today she presents with continued pain throughout her body she reports she has pain from the neck down all the way to her toes. The pain is nonspecific. She denies any specific numbness or tingling or specific dermatomal spread. She reports that she sees a psychiatrist for chronic depression. She also sees a neurologist. She is on multiple psychotropic medications for her pain. She reports that she's had this pain since age 17. She currently uses high-dose Neurontin, Lamictal, Prozac, [place] twice a day. She reports despite all these medications her pain persists. She denies any changes in her medical history recently or any other medication changes. She denies any frequent headaches. Objective - Vital Signs Vital signs: Vital Signs Temp Pulse 67 05/25/18 12:20 Resp 16 05/25/18 12:20 BP 143/78 05/25/18 12:20 Pulse Ox 96 05/25/18 12:20 Intake & Output 05/24/18 05/25/18 05/25/18 18:59 06:59 18:59 Weight 117.934 kg - Exam PHYSICAL EXAM: Constitutional: Awake and alert no distress Cardiovascular exam: Regular rate, no lower extremity edema, palpable pulses bilaterally Respiratory exam: No audible wheezing, no accessory muscle usage Abdominal exam: Soft nontender Muscular skeletal exam: - Cervical spine: tender to palpation bilaterally. Range of motion is not limited. Spurling is negative bilateral. Facet loading is negative bilaterally - Lumbar spine: Preserved lumbar lordosis. No changes in skin. tender palpation bilateral. Patient has full range of motion in flexion and extension as well as lateral sidebending. Straight leg raise is positive at 45. Facet loading is negative. tender over the SI joints. Tender over bilateral trochanteric bursitis, tender over bilateral medial knees. LARA Negative, Gaenselons negative, SI Joint compression negative. Neuro exam: Normal sensation bilateral upper and lower extremities. Deep tendon reflexes are 2+ bilaterally. Valle's is negative Psychiatric exam: Cooperative, good insight, sad Assessment and Plan Assessment: #1 chronic pain #2 lumbar radiculopathy #3 chronic depression Plan: After long discussion with the patient I discussed with her multiple reasons for her pain. I discussed with her that some of her pain may be related to her chronic depression. Advise us of her pain is a result of her chronic depression. Also discussed with her that she could have some organic reason for her pain. She would like to trial an lumbar epidural steroid injection at L4 5 level to see if that'll improve her overall pain.
== END | disposition home or self-care (01) ==
LOC: PNWHC3 12:12
PROVIDERS: ATTEND Hospitalist
DX: G89.29 Other chronic pain (principal); M54.16 Radiculopathy, lumbar region; F32.9 Major depressive disorder, single episode, unspecified; Z79.891 Long term (current) use of opiate analgesic; Z79.899 Other long term (current) drug therapy
CPT/HCPCS: 99211

== ENCOUNTER 2018-06-21 07:36 | Day surgery (SDC) | payer OTHER ==
[2018-06-20 11:16] VITALS: BMI 35.9
[2018-06-21 07:57] VITALS: TEMP 98.5
[2018-06-21] MEDS ORDERED: LACTATED RINGERS 1,000 ML IV ONE (07:58)
[2018-06-21] MEDS ORDERED: LIDOCAINE 1% 20 ML VIAL (10MG/ML) FOR IV START INTRADERMA ONE (07:58)
[2018-06-21 07:59] LABS: Glucose,Whole Blood 271 mg/dL (75-99)
--- NOTE | 2018-06-21 08:55 | P.PCN ---
Date of Procedure: 06/21/18 Procedure(s) Performed: PREOPERATIVE DIAGNOSIS: 1- Lumbar Degenerative Disc Diseases 2-Lumbar spondylosis with Facet arthropathy without myelopathy POSTOPERATIVE DIAGNOSIS: 1-Lumber Degenerative Disc Diseases 2-Lumbar spondylosis with Facet arthropathy without myelopathy PROCEDURE 1. Lumbar epidural steroid injection under fluoroscopic guidance at the L4-5 level. 2. Lumbar epidurogram. ANESTHESIA: Local with 1% lidocaine 3 ml and , moderate sedation with intravenous Versed 2 mg . EBL: Minimal PROCEDURE INDICATION: The patient with low back pain and radiculitis symptoms unresponsive to conservative treatment. Fluoroscopy was used to optimize visualization of the needle placement and to maximize safety. PROCEDURE DESCRIPTION / TECHNIQUE: The patient was seen and identified in the preoperative area. Risks, benefits , complications including but not limited to infections ,bleeding ,allergic reaction to the medications ,nerve damage and not complete pain releife , and alternatives were discussed with the patient. The patient agreed to proceed with the procedure and signed the consent. IV was started, and vital signs were stable. Patient was taken to the OR and time out was completed. The patient was placed in the prone position on procedure table and a pillow was placed under the abdomen to reduce lumbar lordosis. The lumbosacral area was prepped and draped in the usual sterile fashion.ere closely monitored during the procedure. Conscious sedation was used during the procedure to decrease patients anxiety. Vital signs was monitered during the entire procedure. Using anterior-posterior fluoroscopy, the L4-5 interlaminar space was identified and the skin over this site was marked and then infiltrated with 1% lidocaine subcutaneously. Subsequently, a 20-gauge Tuohy epidural needle was inserted and advanced toward the epidural space using the ``Loss of resistance technique and guided by AP and lateral fluoroscopy. The correct needle position in the epidural space was verified with the injection of 2 mL of the water soluble contrast dye Isovue 200 contrast and observing an excellent epidurogram with the epidural spread of the dye, after negative aspiration for blood and CSF and in the absence of paresthesias. Again after negative aspiration, a 6 ml mixture containing 40 mg of Depo-medrol , and 2 ml of preservative free Normal Saline, and 2 ml of preservative free lidocaine 1% solution was injected and a washout of epidurogram was seen. Needle was withdrawn intact, skin was cleansed, and bandages were applied. COMPLICATIONS: None DISPOSITION / PLANS: The patient was placed in a supine position and transferred to the recovery area in a stable condition for observation. There was no evidence of lower extremity motor or sensory deficit after the procedure. Patient was discharged from the recovery room after meeting discharge criteria. Home discharge instructions were given to the patient by the staff. The patient was reexamined prior to discharge. The patient will schedule a follow up in the clinic in 2-4 weeks. Recommend to use 6 inch Touhy needle next visit
[2018-06-21] MEDS ORDERED: IV FLUID CONTINUATION 1,000 ML IV ONE (09:01)
[2018-06-21 09:03] VITALS: RESP 18
--- NOTE | 2018-06-21 09:09 | FL ---
EXAMINATION TYPE: FL guided pain mgmt statistic DATE OF EXAM: 06/21/2018 CLINICAL HISTORY: Low back pain. TECHNIQUE: Fluoroscopy. COMPARISON: None. FINDINGS: Fluoroscopic guidance was provided during pain relief procedure performed by Dr. Maharaj . A total of 3 seconds of fluoroscopic time was utilized during the procedure and single spot fluoro scopic image is acquired. Single image acquired shows needle localization at level of L4-L5 disc spa ce. IMPRESSION: As Above.
[2018-06-21 09:24] VITALS: BP 141/67; PULSE 64
[2018-06-21 09:32] LABS: Glucose,Whole Blood 268 mg/dL (75-99)
== END 2018-06-21 09:30 | disposition home or self-care (01) ==
LOC: ORPAIN 07:36
PROVIDERS: ATTEND Specialist
DX: M51.16 Intervertebral disc disorders with radiculopathy, lumbar region (principal); M47.26 Other spondylosis with radiculopathy, lumbar region; Z88.8 Allergy status to other drugs, medicaments and biological substances; Z91.048 Other nonmedicinal substance allergy status
CPT/HCPCS: 62323; J2250; J1030; J3010; Q9966

== ENCOUNTER → 2018-07-25 | Day surgery (SDC) | payer OTHER ==
[2018-07-13 11:39] VITALS: BMI 36.6
[2018-07-25 10:10] LABS: Glucose,Whole Blood 248 mg/dL (75-99)
[2018-07-25 10:11] VITALS: RESP 18; TEMP 98.7
--- NOTE | 2018-07-25 10:25 | P.PCN ---
Date of Procedure: 07/25/18 Anesthesia: none Description of Procedure: PREOPERATIVE DIAGNOSIS: 1-lumbar radiculopathy POSTOPERATIVE DIAGNOSIS: Lumbar radiculopathy PROCEDURE 1. Lumbar epidural steroid injection under fluoroscopic guidance at the 4/5 level. 2. Lumbar epidurogram. ANESTHESIA: Local with 1% lidocaine 5 ml EBL: Minimal PROCEDURE INDICATION: The patient with low back pain and radiculitis symptoms unresponsive to conservative treatment. Fluoroscopy was used to optimize visualization of the needle placement and to maximize safety. PROCEDURE DESCRIPTION / TECHNIQUE: The patient was seen and identified in the preoperative area. Risks, benefits , complications including but not limited to infections ,bleeding ,allergic reaction to the medications ,nerve damage and incomplete pain relief , as well as alternatives to the procedure were discussed with the patient. The patient agreed to proceed with the procedure and signed the consent. IV was started, and vital signs were stable. Patient was taken to the OR and time out was completed. The patient was placed in the prone position on procedure table and a pillow was placed under the abdomen to reduce lumbar lordosis. The lumbosacral area was prepped and draped in the usual sterile fashion.ere closely monitored during the procedure. Conscious sedation was used during the procedure to decrease patients anxiety. Vital signs was monitered during the entire procedure. Using anterior-posterior fluoroscopy, the L 4/5 interlaminar space was identified and the skin over this site was marked and then infiltrated with 1% lidocaine subcutaneously. Subsequently, a 6inch 20-gauge Tuohy epidural needle was inserted and advanced toward the epidural space using the ``Loss of resistance technique and guided by AP and lateral fluoroscopy. The correct needle position in the epidural space was verified with the injection of 1 mL of the water soluble contrast dye Omnipaque 180 contrast and observing an excellent epidurogram with the epidural spread of the dye, after negative aspiration for blood and CSF and in the absence of paresthesias. Again after negative aspiration, a 4 ml mixture containing 10 mg of Dexamethasone and 3 ml of preservative free Normal Saline was injected and a washout of epidurogram was seen. Needle was withdrawn intact, skin was cleansed, and bandages were applied. COMPLICATIONS: None DISPOSITION / PLANS: The patient was placed in a supine position and transferred to the recovery area in a stable condition for observation. There was no evidence of lower extremity motor or sensory deficit after the procedure. Patient was discharged from the recovery room after meeting discharge criteria. Home discharge instructions were given to the patient by the staff. The patient was reexamined prior to discharge. The patient will schedule a follow up in the clinic in 2-4 weeks.
[2018-07-25 11:18] VITALS: BP 129/72; PULSE 76
--- NOTE | 2018-07-25 14:44 | FL ---
EXAMINATION TYPE: FL guided pain mgmt statistic DATE OF EXAM: 07/25/2018 FLUOROSCOPY Fluoroscopy time of 8 seconds was used during lumbar epidural injection. 1 image/s document/s the pr carlene.
== END ==
LOC: ORPAIN 09:49
PROVIDERS: ATTEND Hospitalist
DX: M54.16 Radiculopathy, lumbar region (principal); Z88.8 Allergy status to other drugs, medicaments and biological substances; Z91.048 Other nonmedicinal substance allergy status
CPT/HCPCS: 62323; J1100; Q9966

== ENCOUNTER → 2018-09-15 | Outpatient (CLI) | payer OTHER ==
[2018-09-15 12:58] VITALS: BP 157/90; PULSE 76; RESP 12
--- NOTE | 2018-09-15 16:08 | P.PAINPG ---
Subjective Progress Note Date: 09/15/18 This is follow-up visit for this patient with a history of severe and chronic low back pain secondary to lumbar degenerative disc disease, lumbar facet arthropathy, We have done an interventional pain procedure lumbar epidural steroid injections 2, she had 0 benefit from it, and previously with done diagnostic medial branch block lumbar area He had no benefit from it, for this reason we did not proceed with a radiofrequency ablation of the medial branch The patient currently on Percocet 7.5/325 twice a day and Neurontin 600 mg every 6 hours and Motrin 800 mg every 6 hours , she is getting prescription refill from her oncologist Dr. 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 Objective - Vital Signs Vital signs: Vital Signs Temp Pulse 76 09/15/18 12:47 Resp 12 09/15/18 12:47 BP 157/90 09/15/18 12:47 Pulse Ox 95 09/15/18 12:47 Intake & Output 09/14/18 09/15/18 09/15/18 18:59 06:59 18:59 Weight 122.47 kg - Exam Physical Examinations : -Constitutiona : Cooperative , not in acute distress . -HEENT : nech ; supple , no Lymphadenopathy , normal thyroid size . eyes : no ptosis , no icterus, no photophobia . ENT : normal of hearing , normal oropharynx , no Thrush . - Respiratory : Chest clear to auscultations Bilaterally , no wheezing , no Rhonchi . - Cardiovascula : regular rate and rhythem , S1 , S2 , no S3 , no S4. - Gastrointestina : abdomen soft no tenderness , bowel sounds , no organomegally . - Genitourinary : Defferred . - neurologic : Cranial nerve II to XII intact , no focal neurological deffecit . -psychatric : alert , oriented X 3 , appropriate affect , intact judgment and insight . -Lymphatic : no Lymphadenopathy . - musculoskeltal : Lumber spine moter stegnth lower extremities ,thigh and legs 5/5 Right side , 5/5 Left side deep tendon reflexes : normal Knee Jerk , normal ankle Jerk positive lumber facet Loading Test Range of motion of the lumbar spine Flexion 30 degrees, extension 10 degrees strait leg raising test , positive at 60 degree Fabere test positive RT and posi tive LT . Sever tenderness over the Sacroiliac joint on the R and L sides Gaenslen test positive bilaterally. Seated flexion test positive bilaterally. Assessment and Plan Plan: Assessment and plan= 1-lumbar spondylosis with lumbar facet arthropathy 2-lumbar degenerative disc disease. 3-bilateral sacroiliitis Patient had no benefit from lumbar epidural steroid injection and she had no benefit from diagnostic medial branch block lumbar area, currently most of the pain is coming from the sacroiliac joint etiology patient will be good candidate bilateral sacroiliac joint steroid injection under fluoroscopy guidance Time with Patient: Less than 30 PQRS Measure Charge Sheet Measure #130: Documentation of Current Meds in Medical Chart: Patient's medications documented in chart Measure #226: Tobacco Use: Screen & Cessation Intervention: Pt not a tobacco user Measure #111: Pneumonia Vaccination: Pneumococcal vaccine NOT administered or previously given Measure #47: Advance Care Plan: Advance care planning discussed & documented, pt chose/unable to give Measure #412: Opioid Treatment Agreement: No documentation of signed opioid treatment agreement Measure #408: Opioid Therapy Follow-up Evaluation: Patient had NO f/u eval minimum every 3 months during opioid therapy Measure #317: Preventitive Care & Scrn High Bld Press & F/U: Pre-hypertensive or hypertensive BP documented, pt will f/u with PCP Measure #128: Body Mass Index (BMI) Screening & Follow-up: BMI documented ABOVE normal parameters - f/u documented Measure #131: Pain Assessment & Follow-up: Pain positive & plan documented, Follow-up scheduled Measure #431: Unhealthy Alcohol Use Preventative Care & Scrn: Patient not identified as an unhealthy alcohol user PQRS Narrative: Smoking Status Never smoker Do You Want the Pneumonia No Vaccine AT THIS TIME? Blood Pressure 157/90 Pain Intensity [Bilateral Leg] 7 Scale Used Numeric (1 - 10) Hx Alcohol Use (MH) Yes: social Home Medications: Ambulatory Orders FLUoxetine HCL [PROzac] 80 mg PO QAM 01/03/15 Insulin Glargine [Lantus] 50 unit SQ HS 01/03/15 traZODone HCL [Desyrel] 200 mg PO HS 01/03/15 Omeprazole [PriLOSEC] 20 mg PO AC-BID 08/13/16 Oxybutynin Chloride [Ditropan XL] 10 mg PO DAILY 08/13/16 Ergocalciferol [Vitamin D2] 50,000 unit PO WE 10/14/16 Hydrocodone/Acetaminophen [Hydrocodon-Acetaminoph 7.5-325] 1 tab PO BID 10/14/16 Levothyroxine Sodium [Synthroid] 25 mcg PO QAM 10/14/16 Gabapentin 600 mg PO QID 02/17/18 lamoTRIgine [LaMICtal] 150 mg PO DAILY 02/17/18 Furosemide [Lasix] 20 mg PO DAILY 03/23/18 Enalapril Maleate [Vasotec] 2.5 mg PO DAILY 03/24/18 Metoprolol Succinate (ER) [Toprol Xl] 25 mg PO DAILY 04/06/18 Atorvastatin [Lipitor] 20 mg PO HS 05/05/18 Insulin Lispro [Admelog] 0 unit SQ AC-TID 05/05/18 Ibuprofen [Motrin Ib] 800 mg PO Q6HR PRN 07/01/18 Augmentin (Unknown Dose) 1 tab PO BID 07/21/18 Vitamin B Complex 1 each PO DAILY 07/21/18 Controlled Substance Measures - Controlled Substance Measures Is patient prescribed a controlled substance at discharge?: No
== END | disposition home or self-care (01) ==
LOC: PNWHC3 12:14
PROVIDERS: ATTEND Specialist
DX: G89.29 Other chronic pain (principal); M54.5 Low back pain; M51.36 Other intervertebral disc degeneration, lumbar region; M47.816 Spondylosis without myelopathy or radiculopathy, lumbar region; M46.86 Other specified inflammatory spondylopathies, lumbar region; M46.1 Sacroiliitis, not elsewhere classified; T45.1X5A Adverse effect of antineoplastic and immunosuppressive drugs, initial encounter; G62.9 Polyneuropathy, unspecified; Z98.890 Other specified postprocedural states; Z79.891 Long term (current) use of opiate analgesic; Z79.899 Other long term (current) drug therapy; Z79.1 Long term (current) use of non-steroidal anti-inflammatories (NSAID)
CPT/HCPCS: 99211

== ENCOUNTER 2018-09-26 09:08 | Day surgery (SDC) | payer OTHER ==
[2018-09-21 13:58] VITALS: BMI 38.0
[2018-09-26 09:25] VITALS: RESP 18; TEMP 98.8
[2018-09-26] MEDS ORDERED: LACTATED RINGERS 1,000 ML IV SCH (09:29)
[2018-09-26] MEDS ORDERED: LIDOCAINE 1% 20 ML VIAL (10MG/ML) FOR IV START INTRADERMA ONE (09:37)
[2018-09-26 09:45] LABS: Glucose,Whole Blood 155 mg/dL (75-99)
--- NOTE | 2018-09-26 10:23 | FL ---
Fluoroscopy INDICATION: Pain FINDINGS: Fluoroscopy time: 4 seconds. Images obtained: 2. IMPRESSIONS: 1. Documentation of fluoroscopy.
[2018-09-26 10:33] VITALS: BP 116/65; PULSE 68
[2018-09-26] MEDS ORDERED: IV FLUID CONTINUATION 1,000 ML IV ONE (10:42)
[2018-09-26 10:46] LABS: Glucose,Whole Blood 133 mg/dL (75-99)
--- NOTE | 2018-09-26 10:47 | P.PCN ---
Date of Procedure: 09/26/18 Procedure(s) Performed: Procedure= bilateral sacral iliac joints steroid injection under fluoroscopy g uidance Preoperative diagnosis= 1-sacroiliitis 2-lumbar degenerative disc disease 3- lumbar spondylosis with facet arthropathy Postoperative diagnosis=1-sacroiliitis 2-lumbar degenerative disc disease 3- lumbar spondylosis with facet arthropathy Complication = none Condition= stable Anesthesia= moderate sedation with intravenous Versed 2 mg , and fentanyl 50 micrograms and local infiltration with lidocaine 1% 5 mL Indication for the procedure= patient complaining of low back pain , examination was positive for severe tenderness over the sacroiliac joints bilaterally and patient diagnosed with sacroiliitis, for this reason he/ she was good candidate for sacroiliac joint steroid injection. Description of the procedure= procedure risk and benefits discussed with the patient, including but not limited, risk of infection and bleeding, and ALLERGIC reaction to the medication and not complete pain relief and patient agreed with the preceding patient taken to the operating room, placed in prone position or standard monitors applied to the patient then after induction of anesthesia back prepped with chlorhexidine 3 times , Then under strict sterile technique, first I did the right sacroiliac joint the which was identified under fluoroscopy guidance been local infiltration of the skin and subcu interstitial with lidocaine 1% then 22-gauge Quincke Needle advanced slowly under fluoroscopy and placed in the right sacroiliac joint needle placement confirmed with AP and oblique and lateral view and after appropriate needle placement confirmed and after negative aspiration, or heme , then Ropivacaine 0.5% 3 mL, and 20 mg of Depo-Medrol mixed together and injected in the right sacroiliac joint after negative aspiration patient tolerated the procedure well without any complication. Then the left sacroiliac joint steroid injection done under strict sterile technique local infiltration of the skin and subcu interstitial at the location of the left sacroiliac joint then a 22-gauge Quincke Needle advanced slowly under fluoroscopy time placed in the left sacroiliac joint, needle placement confirmed with AP and oblique and lateral view then after appropriate needle placement confirmed and after negative aspiration 0.5% Marcaine 3 mL and 20 mg of Depo-Medrol injected in the left sacroiliac joint after negative aspiration patient tolerated the procedure well that any complications and she will follow up in clinic 3 weeks
== END 2018-09-26 10:45 | disposition home or self-care (01) ==
LOC: ORPAIN 09:08
PROVIDERS: ATTEND Specialist
DX: M46.1 Sacroiliitis, not elsewhere classified (principal); M51.36 Other intervertebral disc degeneration, lumbar region; M47.816 Spondylosis without myelopathy or radiculopathy, lumbar region
CPT/HCPCS: J2250; J1030; G0260

== ENCOUNTER 2018-10-10 09:46 | Day surgery (SDC) | payer OTHER ==
[2018-10-05 15:56] VITALS: BMI 35.9
[~2018-10-10 09:46] MED LIST changes: +LACTATED RINGERS 1,000 ML IV SCH; -SODIUM CHLORIDE 0.9% 500 ML 500 ML IV SCH
[2018-10-10 10:35] VITALS: RESP 18; TEMP 98
[2018-10-10] MEDS ORDERED: LIDOCAINE 1% 20 ML VIAL (10MG/ML) FOR IV START INTRADERMA ONE (10:35)
[2018-10-10 10:42] LABS: Glucose,Whole Blood 165 mg/dL (75-99)
--- NOTE | 2018-10-10 11:51 | P.PCN ---
Date of Procedure: 10/10/18 Procedure(s) Performed: Procedure(s) Performed: Procedure= bilateral sacral iliac joints steroid injection under fluoroscopy guidance Preoperative diagnosis= 1-sacroiliitis 2-lumbar degenerative disc disease 3- lumbar spondylosis with facet arthropathy Postoperative diagnosis=1-sacroiliitis 2-lumbar degenerative disc disease 3- lumbar spondylosis with facet arthropathy Complication = none Condition= stable Anesthesia= moderate sedation with intravenous Versed 2 mg , and fentanyl 50 micrograms and local infiltration with lidocaine 1% 5 mL Indication for the procedure= patient complaining of low back pain , examination was positive for severe tenderness over the sacroiliac joints bilaterally and patient diagnosed with sacroiliitis, for this reason he/ she was good candidate for sacroiliac joint steroid injection. Description of the procedure= procedure risk and benefits discussed with the patient, including but not limited, risk of infection and bleeding, and ALLERGIC reaction to the medication and not complete pain relief and patient agreed with the preceding patient taken to the operating room, placed in prone position or standard monitors applied to the patient then after induction of anesthesia back prepped with chlorhexidine 3 times , Then under strict sterile technique, first I did the right sacroiliac joint the which was identified under fluoroscopy guidance been local infiltration of the skin and subcu interstitial with lidocaine 1% then 22-gauge Quincke Needle advanced slowly under fluoroscopy and placed in the right sacroiliac joint needle placement confirmed with AP and oblique and lateral view and after appro priate needle placement confirmed and after negative aspiration, or heme , then Ropivacaine 0.5% 3 mL, and 20 mg of Depo-Medrol mixed together and injected in the right sacroiliac joint after negative aspiration patient tolerated the procedure well without any complication. Then the left sacroiliac joint steroid injection done under strict sterile technique local infiltration of the skin and subcu interstitial at the location of the left sacroiliac joint then a 22-gauge Quincke Needle advanced slowly under fluoroscopy time placed in the left sacroiliac joint, needle placement confirmed with AP and oblique and lateral view then after appropriate needle placement confirmed and after negative aspiration 0.5% Marcaine 3 mL and 20 mg of Depo-Medrol injected in the left sacroiliac joint after negative aspiration patient tolerated the procedure well that any complications and she will follow up in clinic 3 weeks
[2018-10-10] MEDS ORDERED: IV FLUID CONTINUATION 500 ML IV ONE (11:57)
[2018-10-10 12:21] VITALS: BP 133/80; PULSE 70
--- NOTE | 2018-10-10 12:59 | FL ---
EXAMINATION TYPE: FL guided pain mgmt statistic DATE OF EXAM: 10/10/2018 HISTORY: Pain 24sec fluoro time,2 images scanned
== END 2018-10-10 12:21 | disposition home or self-care (01) ==
LOC: ORPAIN 09:46
PROVIDERS: ATTEND Specialist
DX: M46.1 Sacroiliitis, not elsewhere classified (principal); M51.36 Other intervertebral disc degeneration, lumbar region; M47.816 Spondylosis without myelopathy or radiculopathy, lumbar region; E11.9 Type 2 diabetes mellitus without complications; Z88.8 Allergy status to other drugs, medicaments and biological substances; Z91.048 Other nonmedicinal substance allergy status
CPT/HCPCS: J2250; J3301; J3010; G0260

== ENCOUNTER → 2018-11-02 | Outpatient (CLI) | payer OTHER ==
[2018-11-02 12:14] VITALS: BP 139/71; RESP 16
--- NOTE | 2018-11-02 13:26 | P.PAINPG ---
Subjective Progress Note Date: 11/02/18 This is follow-up visit for this patient with a history of severe and chronic low back pain secondary to lumbar degenerative disc disease, lumbar facet arthropathy, and sacroiliitis We have done an interventional pain procedure lumbar epidural steroid injections 2, she had 0 benefit from it, and also we have done diagnostic medial branch block lumbar area she had no benefit from it, and recently we've done bilateral sacroiliac joint steroid injection, she had very minimal benefit from it, She continued to have severe low back pain with radiation to the lower extremity mainly to the right side The patient currently on Percocet 7.5/325 twice a day and Neurontin 600 mg every 6 hours and Motrin 800 mg every 6 hours , she is getting prescription refill from her oncologist Dr. 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 Physical Examinations : -Constitutiona : Cooperative , not in acute distress . -HEENT : nech ; supple , no Lymphadenopathy , normal thyroid size . eyes : no ptosis , no icterus, no photophobia . ENT : normal of hearing , normal oropharynx , no Thrush . - Respiratory : Chest clear to auscultations Bilaterally , no wheezing , no Rhonchi . - Cardiovascula : regular rate and rhythem , S1 , S2 , no S3 , no S4. - Gastrointestina : abdomen soft no tenderness , bowel sounds , no organomegally . - Genitourinary : Defferred . - neurologic : Cranial nerve II to XII intact , no focal neurological deffecit . -psychatric : alert , oriented X 3 , appropriate affect , intact judgment and insight . -Lymphatic : no Lymphadenopathy . - musculoskeltal : Lumber spine moter stegnth lower extremities ,thigh and legs 5/5 Right side , 5/5 Left side deep tendon reflexes : normal Knee Jerk , normal ankle Jerk positive lumber facet Loading Test Range of motion of the lumbar spine Flexion 30 degrees, extension 10 degrees strait leg raising test , positive at 60 degree Fabere test positive RT and positive LT . Sever tenderness over the Sacroiliac joint on the R and L sides Gaenslen test positive bilaterally. Seated flexion test positive bilaterally. MRI of the lumbar spine= done at [facility] showed L2-3 L3 4 lumbar annular disc bulging with facet arthropathy and L4 5 right-sided paracentral disc protrusion Assessment and plan= 1-lumbar spondylosis with lumbar facet arthropathy 2-lumbar degenerative disc disease. 3-bilateral sacroiliitis Patient had no benefit from interventional pain management, she already started physical therapy and she is getting some benefit from it, patient will be referred to spine surgeon for evaluation for possible surgical interventions Objective - Vital Signs Vital signs: Vital Signs Temp Pulse Resp 16 11/02/18 12:02 BP 139/71 11/02/18 12:02 Pulse Ox 96 11/02/18 12:02 Intake & Output 11/01/18 11/02/18 11/02/18 18:59 06:59 18:59 Weight 120.202 kg PQRS Measure Charge Sheet Measure #130: Documentation of Current Meds in Medical Chart: Patient's medications documented in chart Measure #226: Tobacco Use: Screen & Cessation Intervention: Pt not a tobacco user Measure #111: Pneumonia Vaccination: Pneumococcal vaccine NOT administered or previously given Measure #47: Advance Care Plan: Advance care planning discussed & documented, pt chose/unable to give Measure #412: Opioid Treatment Agreement: No documentation of signed opioid treatment agreement Measure #408: Opioid Therapy Follow-up Evaluation: Patient had NO f/u eval minimum every 3 months during opioid therapy Measure #317: Preventitive Care & Scrn High Bld Press & F/U: Normal blood pressure, f/u not required Measure #128: Body Mass Index (BMI) Screening & Follow-up: BMI documented ABOVE normal parameters - f/u documented Measure #131: Pain Assessment & Follow-up: Pain positive & plan documented, Follow-up scheduled, Follow-up PRN Measure #431: Unhealthy Alcohol Use Preventative Care & Scrn: Patient not identified as an unhealthy alcohol user PQRS Narrative: Smoking Status Never smoker Blood Pressure 139/71 Pain Intensity [Bilateral 5 Lower Back] Scale Used Numeric (1 - 10) Hx Alcohol Use (MH) Yes: social Home Medications: Ambulatory Orders FLUoxetine HCL [PROzac] 80 mg PO QAM 01/03/15 Insulin Glargine [Lantus] 50 unit SQ HS 01/03/15 traZODone HCL [Desyrel] 200 mg PO HS 01/03/15 Oxybutynin Chloride [Ditropan XL] 10 mg PO DAILY 08/13/16 Ergocalciferol [Vitamin D2] 50,000 unit PO WE 10/14/16 Hydrocodone/Acetaminophen [Hydrocodon-Acetaminoph 7.5-325] 1 tab PO BID 10/14/16 Levothyroxine Sodium [Synthroid] 25 mcg PO QAM 10/14/16 Gabapentin 600 mg PO QID 02/17/18 lamoTRIgine [LaMICtal] 150 mg PO DAILY 02/17/18 Furosemide [Lasix] 20 mg PO DAILY 03/23/18 Enalapril Maleate [Vasotec] 2.5 mg PO DAILY 03/24/18 Atorvastatin [Lipitor] 40 mg PO HS 05/05/18 Insulin Lispro [Admelog] 0 unit SQ AC-TID 05/05/18 Ibuprofen [Motrin Ib] 800 mg PO DAILY PRN 07/01/18 Vitamin B Complex 1 each PO DAILY 07/21/18 Aspirin [Adult Low Dose Aspirin EC] 81 mg PO DAILY 09/21/18 Controlled Substance Measures - Controlled Substance Measures Is patient prescribed a controlled substance at discharge?: No
== END ==
LOC: PNWHC3 11:45
PROVIDERS: ATTEND Specialist
DX: M51.36 Other intervertebral disc degeneration, lumbar region (principal); M47.816 Spondylosis without myelopathy or radiculopathy, lumbar region; M46.96 Unspecified inflammatory spondylopathy, lumbar region; M46.1 Sacroiliitis, not elsewhere classified; Z79.899 Other long term (current) drug therapy; Z79.891 Long term (current) use of opiate analgesic; Z79.4 Long term (current) use of insulin; Z79.82 Long term (current) use of aspirin
CPT/HCPCS: 99211

== ENCOUNTER 2020-01-24 07:43 | Day surgery (SDC) | payer OTHER ==
[2020-01-19 11:08] VITALS: BMI 38.7
--- NOTE | 2020-01-24 08:07 | P.GSHP ---
History of Present Illness H&P Date: 01/24/20 CHIEF COMPLAINT: Colon screen HISTORY OF PRESENT ILLNESS: The patient is a 59-year-old female who presents for colon screen. Lower endoscopy was offered for further evaluation and management. PAST MEDICAL HISTORY: Please see list. PAST SURGICAL HISTORY: Please see list. MEDICATIONS: Please see list. ALLERGIES: Please see list. SOCIAL HISTORY: No illicit drug use FAMILY HISTORY: No reports of Crohn disease or ulcerative colitis. REVIEW OF ORGAN SYSTEMS: CONSTITUTIONAL: No reports of fevers or chills. PHYSICAL EXAM: VITAL SIGNS: Stable GENERAL: Well-developed pleasant in no acute distress. HEENT: No scleral icterus. Extraocular movements grossly intact. Moist buccal mucosa. NECK: Supple without lymphadenopathy. CHEST: Unlabored respirations. Equal bilateral excursions. CARDIOVASCULAR: Regular rate and rhythm. Distal 2+ pulses. ABDOMEN: Soft, nontender, nondistended. MUSCULOSKELETAL: No clubbing, cyanosis, or edema. ASSESSMENT: 1. Colon screen. PLAN: 1. Recommend proceeding with a lower endoscopy Past Medical History Past Medical History: Cancer, Diabetes Mellitus, GERD/Reflux, Hypertension, Musculoskeletal Disorder, Thyroid Disorder, Vascular Disorder Additional Past Medical History / Comment(s): HX CA COLON POLYPS, RT BREAST CA- CHEMO AND RADIATION, HIATAL HERNIA, NEUROPATHY IN FEET, BONE SPURS, FREQUENT Constipation. STATES PAIN "ALL OVER" AND PAIN FROM HEEL AND PATELLA SPURS AND RT SHOULDER PAIN FROM PAST INJURY. DDD; URINARY INCONTINENCE, PT STATES RECENT FALL- HER LEGS JUST GAVE OUT; STATES SOME SORES ON HER LEGS FROM ITCHING., chronic neck and back pain,Reports recent "vascular reflux" diagnosis. History of Any Multi-Drug Resistant Organisms: None Reported Past Surgical History: Breast Surgery, Cholecystectomy, Tonsillectomy Additional Past Surgical History / Comment(s): RT PARTIAL MASTECTOMY WITH AXILLARY LYMPH NODE DISSECTION. PAIN PROCEDURES Past Anesthesia/Blood Transfusion Reactions: No Reported Reaction Additional Past Anesthesia/Blood Transfusion Reaction / Comment(s): no hx blood transfusion Smoking Status: Never smoker - Past Family History Father Family Medical History: No Reported History Mother Family Medical History: Cancer, Thyroid Disorder Additional Family Medical History / Comment(s): BREAST Medications and Allergies Home Medications Medication Instructions Recorded Confirmed Type FLUoxetine HCL [PROzac] 80 mg PO QAM 01/03/15 01/19/20 History traZODone HCL [Desyrel] 200 mg PO HS 01/03/15 01/19/20 History Oxybutynin Chloride [Ditropan XL] 10 mg PO DAILY 08/13/16 01/19/20 History Ergocalciferol [Vitamin D2] 50,000 unit PO FR 10/14/16 01/19/20 History Hydrocodone/Acetaminophen 1 tab PO BID PRN 10/14/16 01/19/20 History [Hydrocodon-Acetaminoph 7.5-325] Levothyroxine Sodium [Synthroid] 25 mcg PO QAM 10/14/16 01/19/20 History Gabapentin 600 mg PO QID 02/17/18 01/19/20 History lamoTRIgine [LaMICtal] 200 mg PO QAM 02/17/18 01/19/20 History Enalapril Maleate [Vasotec] 2.5 mg PO QAM 03/24/18 01/19/20 History Atorvastatin [Lipitor] 40 mg PO HS 05/05/18 01/19/20 History Insulin Lispro [Admelog] 20 - 30 unit SQ TID-W/MEALS PRN 05/05/18 01/19/20 History Ibuprofen [Motrin Ib] 800 mg PO DAILY PRN 07/01/18 01/19/20 History Vitamin B Complex 1 each PO DAILY 07/21/18 01/19/20 History Aspirin [Adult Low Dose Aspirin EC] 81 mg PO DAILY 09/21/18 01/19/20 History Docusate [Colace] 200 mg PO DAILY 01/19/20 01/19/20 History Fluticasone Nasal [place] [Flonase 2 spr EA NOSTRIL DAILY 01/19/20 01/19/20 History Nasal [place]] Insulin Glargine,Hum.rec.anlog 55 unit SQ HS 01/19/20 01/19/20 History [Basaglar Kwikpen U-100] Omeprazole 20 mg PO BID 01/19/20 01/19/20 History Pyridoxine HCl (Vitamin B6) 100 mg PO DAILY 01/19/20 01/19/20 History [Vitamin B-6] clonazePAM [KlonoPIN] 0.25 mg PO BID PRN 01/19/20 01/19/20 History Allergies Allergy/AdvReac Type Severity Reaction Status Date / Time prochlorperazine edisylate Allergy Severe MUSCLE Verified 01/19/20 10:54 [From Compazine] PARALYSIS - TETANUS LIKE SYMPTOMS prochlorperazine maleate Allergy Severe MUSCLE Verified 01/19/20 10:54 [From Compazine] PARALYSIS- TETANUS LIKE SYMPTOMS adhesive AdvReac Unknown Rash/Hives,"paper Verified 01/19/20 10:54 tape is ok" TEGADERM Allergy Rash/Hives Uncoded 01/19/20 10:54
[2020-01-24 08:13] VITALS: TEMP 97.8
[2020-01-24 08:18] LABS: Glucose,Whole Blood 138 mg/dL (75-99)
[2020-01-24] MEDS ORDERED: LACTATED RINGERS 1,000 ML IV ONE (08:18)
[2020-01-24] MEDS ORDERED: LIDOCAINE 1% (10MG/ML) FOR IV START INTRADERMA ONE (08:19)
[2020-01-24] MEDS ORDERED: PROPOFOL 10 MG/ML 20 ML VIAL IV ONE (08:30)
--- NOTE | 2020-01-24 08:56 | P.PCN ---
Date of Procedure: 01/24/20 Description of Procedure: PREOPERATIVE DIAGNOSIS: Personal history malignant colon polyp Morbid obesity due to excess calories, BMI 38.4 Diabetes type 2, insulin-dependent POSTOPERATIVE DIAGNOSIS: Personal history malignant colon polyp Morbid obesity due to excess calories, BMI 38.4 Diabetes type 2, insulin-dependent Tubular adenoma transverse colon OPERATION: Colonoscopy to the ileocecal valve and appendiceal orifice, cecum Colonoscopy with hot snare polypectomy SURGEON: Hazel Colvin MD. ANESTHESIA: MAC. INDICATIONS: The patient is an 59-year-old male who presents with personal history of colon cancer. Last colonoscopy 5 years. Benefits and risks were described and informed consent was obtained. DESCRIPTION OF PROCEDURE: The patient had undergone Suprep. She had been brought into the operating room and laid in the left lateral decubitus position. After adequate intravenous sedation, the rectum was examined with 2% lidocaine jelly. No external hemorrhoids were encountered. The rectal tone was within normal limits. No lesions were palpated in the rectal vault. An Olympus colonoscope was advanced until the cecum, ileocecal valve and appendiceal orifice were clearly viewed. The prep was excellent. Sigmoid diverticulosis was encountered. Mid transverse tubular adenoma, 1 cm was found and snare polypectomy. No evidence of focal colitis was found. Retroflexion of the scope demonstrated grade 1 internal hemorrhoids without active bleeding or inflammation. The colon was desufflated. The patient had tolerated the procedure well. Withdrawal time was over 6 minutes. FINDINGS: Aronchick preparation quality scale 1 (1-5) Internal hemorrhoids, grade 1 No external hemorrhoids No arteriovenous malformations. Sigmoid diverticulosis Removal of 1 polyp: - Snare polypectomy mid transverse colon , 10 mm tubular adenoma No focal colitis. RECOMMENDATIONS: Repeat colonoscopy 3 years, 2022 Plan - Discharge Summary Discharge Rx Participant: No New Discharge Prescriptions: Continue FLUoxetine HCL [PROzac] 80 mg PO QAM traZODone HCL [Desyrel] 200 mg PO HS Oxybutynin Chloride [Ditropan XL] 10 mg PO DAILY Ergocalciferol [Vitamin D2 (DRISDOL)] 50,000 unit PO FR Levothyroxine Sodium [Synthroid] 25 mcg PO QAM Hydrocodone/Acetaminophen [Hydrocodone-Acetamin 7.5-325] 1 tab PO BID PRN PRN Reason: Pain lamoTRIgine [LaMICtal] 200 mg PO QAM Gabapentin 600 mg PO QID Enalapril Maleate [Vasotec] 2.5 mg PO QAM Atorvastatin [Lipitor] 40 mg PO HS Insulin Lispro [Admelog] 20 - 30 unit SQ TID-W/MEALS PRN PRN Reason: blood sugar scale Ibuprofen [Motrin Ib] 800 mg PO DAILY PRN PRN Reason: Pain Vitamin B Complex 1 each PO DAILY Aspirin [Adult Low Dose Aspirin EC] 81 mg PO DAILY Pyridoxine HCl (Vitamin B6) [Vitamin B-6] 100 mg PO DAILY Omeprazole 20 mg PO BID Docusate [Colace] 200 mg PO DAILY Fluticasone Nasal [place] [Flonase Nasal [place]] 2 spr EA NOSTRIL DAILY Insulin Glargine,Hum.rec.anlog [Basaglar Kwikpen U-100] 55 unit SQ HS clonazePAM [KlonoPIN] 0.25 mg PO BID PRN PRN Reason: Anxiety Discharge Medication List FLUoxetine HCL [PROzac] 80 mg PO QAM 01/03/15 [History] traZODone HCL [Desyrel] 200 mg PO HS 01/03/15 [History] Oxybutynin Chloride [Ditropan XL] 10 mg PO DAILY 08/13/16 [History] Ergocalciferol [Vitamin D2 (DRISDOL)] 50,000 unit PO FR 10/14/16 [History] Hydrocodone/Acetaminophen [Hydrocodone-Acetamin 7.5-325] 1 tab PO BID PRN 10/14/16 [History] Levothyroxine Sodium [Synthroid] 25 mcg PO QAM 10/14/16 [History] Gabapentin 600 mg PO QID 02/17/18 [History] lamoTRIgine [LaMICtal] 200 mg PO QAM 02/17/18 [History] Enalapril Maleate [Vasotec] 2.5 mg PO QAM 03/24/18 [History] Atorvastatin [Lipitor] 40 mg PO HS 05/05/18 [History] Insulin Lispro [Admelog] 20 - 30 unit SQ TID-W/MEALS PRN 05/05/18 [History] Ibuprofen [Motrin Ib] 800 mg PO DAILY PRN 07/01/18 [History] Vitamin B Complex 1 each PO DAILY 07/21/18 [History] Aspirin [Adult Low Dose Aspirin EC] 81 mg PO DAILY 09/21/18 [History] Docusate [Colace] 200 mg PO DAILY 01/19/20 [History] Fluticasone Nasal [place] [Flonase Nasal [place]] 2 spr EA NOSTRIL DAILY 01/19/20 [History] Insulin Glargine,Hum.rec.anlog [Basaglar Kwikpen U-100] 55 unit SQ HS 01/19/20 [History] Omeprazole 20 mg PO BID 01/19/20 [History] Pyridoxine HCl (Vitamin B6) [Vitamin B-6] 100 mg PO DAILY 01/19/20 [History] clonazePAM [KlonoPIN] 0.25 mg PO BID PRN 01/19/20 [History] Follow up Appointment(s)/Referral(s): Hazel Colvin MD [STAFF PHYSICIAN] - As Needed Patient Instructions/Handouts: Diverticulosis Diet (GEN), Diverticulosis (DC), Colorectal Polyps (DC) Activity/Diet/Wound Care/Special Instructions: Repeat colonoscopy 3 years, 2022 Discharge Disposition: HOME SELF-CARE
[2020-01-24 09:01] LABS: Glucose,Whole Blood 155 mg/dL (75-99)
[2020-01-24 09:10] VITALS: BP 137/76; PULSE 64; RESP 19
== END 2020-01-24 09:48 | disposition home or self-care (01) ==
LOC: ORWHC2ENDO 07:43
PROVIDERS: ATTEND Surgery Plastic and Reconstructive Surgery
DX: Z12.11 Encounter for screening for malignant neoplasm of colon (principal); D12.3 Benign neoplasm of transverse colon; K57.30 Diverticulosis of large intestine without perforation or abscess without bleeding; K64.0 First degree hemorrhoids; Z85.038 Personal history of other malignant neoplasm of large intestine; K21.9 Gastro-esophageal reflux disease without esophagitis; E11.40 Type 2 diabetes mellitus with diabetic neuropathy, unspecified; E66.01 Morbid (severe) obesity due to excess calories; E07.9 Disorder of thyroid, unspecified; Z68.38 Body mass index [BMI] 38.0-38.9, adult; Z86.010 Personal history of colon polyps; E11.9 Type 2 diabetes mellitus without complications; K44.9 Diaphragmatic hernia without obstruction or gangrene; G89.29 Other chronic pain; M54.2 Cervicalgia; I10 Essential (primary) hypertension; I99.9 Unspecified disorder of circulatory system; Z85.3 Personal history of malignant neoplasm of breast; Z92.21 Personal history of antineoplastic chemotherapy; Z92.3 Personal history of irradiation; M77.9 Enthesopathy, unspecified; R32 Unspecified urinary incontinence; M54.9 Dorsalgia, unspecified; Z90.49 Acquired absence of other specified parts of digestive tract; Z90.11 Acquired absence of right breast and nipple; Z98.890 Other specified postprocedural states; Z83.49 Family history of other endocrine, nutritional and metabolic diseases; Z79.4 Long term (current) use of insulin; Z79.82 Long term (current) use of aspirin; Z79.890 Hormone replacement therapy; Z79.899 Other long term (current) drug therapy; Z88.7 Allergy status to serum and vaccine; Z88.8 Allergy status to other drugs, medicaments and biological substances; Z91.09 Other allergy status, other than to drugs and biological substances; G47.33 Obstructive sleep apnea (adult) (pediatric); Z91.19 Patient's noncompliance with other medical treatment and regimen
CPT/HCPCS: 88305; 45385; J2704

== ENCOUNTER → 2024-01-31 | Outpatient (CLI) | payer OTHER ==
[2024-01-31 14:33] VITALS: BP 116/66; PULSE 69; RESP 16; TEMP 98.3
--- NOTE | 2024-02-03 07:56 | P.PAINPG ---
Objective - Vital Signs Vital signs: Intake & Output 01/30/24 01/31/24 01/31/24 18:59 06:59 18:59 Weight 113.398 kg PQRS Measure Charge Sheet Comment: HISTORY OF PRESENT ILLNESS: A 63 yr old female as a referral from Dr Hines presents today w severe and chronic neck pain since 2018 secondary to DDD, spondylosis and facet arthropathy without myelopathy for evaluation. Pt states pain level is provoked at 7 /10 in intensity, constant, localized in the cervical spine, predominantly axial, throbbing in character w occasional shooting pain towards the RUE. Pain is provoked by lifting or hyperextension. Pain is alleviated by PT integrated w massage x 6 wks which she is currently in, heat, ice, medications (Percocet), topical, repositioning and rest . PMH: OA, Breast CA (2014), NIDDM II, GERD, HTN, Hypothyroidism, PVD, HH, UI, Vitamin D Deficiency PSH: C3-C5 Fusion, Hx Lumbar Laminectomy, Colonoscopy (2019), R Partial Masectomy w Axillary Lymph Node Dissection, LESIs, Cholecystectomy, Tonsillectomy SH: Negative x3 FH: Fa- No Reported History. Mo- Breast CA, Thyroid Disorder All: See list Meds: See list REVIEW OF ORGAN SYSTEMS: CONSTITUTIONAL: No fevers or chills. No recent weight loss. NEUROLOGICAL: + numbness and tingling along the distal extremities. No seizure disorders or headaches. MUSCULOSKELETAL: + pain PSYCHIATRIC: Denies current depression or suicidal thoughts. Physical Examinations : Constitutional : Cooperative , not in acute distress . Neurologic : Cranial nerve II to XII intact. No focal neurological deficits. Psychiatric : alert & oriented x 3. Matching mood & appropriate affect. Judgment & insight intact. Musculoskeletal : Cervical Spine Motor strength in the deltoid and biceps: Normal right side. Normal Left side Motor strength biceps and the wrist extensors: Normal right side . Normal left side Motor strength in the triceps muscle: Normal right side. Normal left side Deep tendon reflexes: Normal at the biceps. Normal at Brachioradialis. Normal at triceps Vertebral body tenderness to deep palpation over C6 Mustafa test positive BL C6-C7 Cervical facet loading test: positive bilaterally Spurling test: positive bilaterally Neck distraction test: positive bilaterally Giana sign: positive bilaterally Lumbar spine Motor strength lower extremities ,thigh and legs 5/5 Right side , 5/5 Left side Deep tendon reflexes : Normal Knee Jerk. Normal Ankle Jerk Vertebral body tenderness over Mustafa Test positive Lumbar facet Loading Test: positive Right / positive Left Range of motion of the lumbar spine Flexion 30 degrees, extension 10 degrees Straight Leg Raise test: Left/ Right positive at degrees Susan test: positive right / positive left. Severe tenderness over the Sacroiliac joint on the Right / Left sides Gaenslen test: positive bilaterally Seated flexion test: positive bilaterally. Sacral spine : Severe tenderness over the Sacroiliac joint: right side / left side Range of motion: Flexion of the lumbar spine <60 degrees Range of motion: Extension of the lumbar spine <20 degrees Gaenslen's Test positive Susan test: positive right side / left side Thigh Thrust Test Sacral Thrust Test Imaging: CT non contrast of the cervical spine from 10-11-23 reviewed Assessment/ Plan : Cervical post laminectomy syndrome Recommendation of KAVYA C6-C7 #1. Risks, benefits of procedure discussed and patient verbalized understanding. Admits to anti- coagulant use or medical history of diabetes. Protocol for discontinuation/ continuation of medications david procedure discussed. All questions answered. I have spent greater than 30 minutes on patient care today. Dr Maharaj was available by phone for the evaluation of this patient. The time was used to review the medical records including relevant urine studies and Prescription history (MAPs), review of the available imaging, evaluation and examination of the patient, coordination of care with the medical staff and if applicable referring physicians, as well as creation of the medical record PQRS Narrative: Smoking Status Never smoker Hx Alcohol Use (MH) Yes: social Home Medications: Ambulatory Orders FLUoxetine HCL [PROzac] 80 mg PO QAM 01/03/15 traZODone HCL [Desyrel] 200 mg PO HS 01/03/15 oxyBUTYnin chloride [Ditropan XL] 10 mg PO DAILY 08/13/16 Ergocalciferol [Vitamin D2 (DRISDOL)] 50,000 unit PO FR 10/14/16 Hydrocodone/Acetaminophen [Hydrocodone/Acetaminophen 7.5-325] 1 tab PO BID PRN 10/14/16 Levothyroxine Sodium [Synthroid] 25 mcg PO QAM 10/14/16 Gabapentin 600 mg PO QID 02/17/18 lamoTRIgine [LaMICtal] 200 mg PO QAM 02/17/18 Enalapril Maleate [Vasotec] 2.5 mg PO QAM 03/24/18 Atorvastatin [Lipitor] 40 mg PO HS 05/05/18 Insulin Lispro [Admelog] 20 - 30 unit SQ TID-W/MEALS PRN 05/05/18 Ibuprofen [Motrin Ib] 800 mg PO DAILY PRN 07/01/18 Vitamin B Complex 1 each PO DAILY 07/21/18 Aspirin [Adult Low Dose Aspirin EC] 81 mg PO DAILY 09/21/18 Docusate [Colace] 200 mg PO DAILY 01/19/20 Fluticasone Nasal [place] [Flonase Nasal [place]] 2 spr EA NOSTRIL DAILY 01/19/20 Insulin Glargine,Hum.rec.anlog [Ellaaglleighton Herrera U-100] 55 unit SQ HS 01/19/20 Omeprazole 20 mg PO BID 01/19/20 Pyridoxine HCl (Vitamin B6) [Vitamin B-6] 100 mg PO DAILY 01/19/20 clonazePAM [KlonoPIN] 0.25 mg PO BID PRN 01/19/20 Controlled Substance Measures - Controlled Substance Measures Is patient prescribed a controlled substance at discharge?: No
== END ==
LOC: PNWHC3 13:10
PROVIDERS: ATTEND Specialist
DX: M47.816 Spondylosis without myelopathy or radiculopathy, lumbar region
CPT/HCPCS: 99202

== ENCOUNTER 2024-03-09 11:32 | Day surgery (SDC) | payer OTHER ==
[2024-03-09 11:58] LABS: Glucose,Whole Blood 194 mg/dL (70-110)
[2024-03-09 12:00] VITALS: RESP 16; TEMP 97
[2024-03-09] MEDS ORDERED: DEXAMETHASONE SOD PHOSPHATE 10 MG/ML 1 ML VIAL ONE (12:56)
[2024-03-09] MEDS ORDERED: IOPAMIDOL M200 10 ML VIAL ONE (12:56)
--- NOTE | 2024-03-09 13:10 | P.PCN ---
Date of Procedure: 03/09/24 Description of Procedure: Pre- and Post-operative Diagnosis: Cervical radiculopathy Procedure: C6-C7 Inter-Laminar Cervical Epidural Steroid Injection under biplanar fluoroscopy Surgeon: Mary Kay Gonzalez Anesthesia: Local: 1% Lidocaine, IV sedation : None. Complications: None. Estimated blood loss: None Specimens removed: None Fluoroscopic image: saved to patient electronic medical records. Indications for Procedure: The patient has been suffering from neck pain and pa in radiating to the upper extremity . Inadequate pain control with pharmacologic regimen. An inter-laminar approach cervical epidural steroid injection was scheduled for the patient. Procedure and Findings: The patient was seen and examined in the holding area. The written informed consent was obtained after explaining the risks, benefits, alternatives of the procedure to the patient. The patient was brought to the procedure room and was placed in the prone position on the operating table. A pillow was placed under the upper chest. Standard anesthesia monitoring was done through out the procedure. Timeout was completed. The skin preparation was done with ChloraPrep 1 and draping was done in usual sterile fashion. Sterile technique was observed throughout the procedure. Under fluoroscopic guidance, the C6-7 inter-laminar space was identified. 3 ml of 1% Lidocaine was injected with a 25 gauge needle to achieve adequate local anesthesia of the skin and subcutaneous tissue. A 20 gauge, 3.5 inch Tuohy type epidural needle was placed and gradually advanced up to the epidural space using loss of resistance technique and fluoroscopic guidance. No parenthesia was noted. A negative aspiration was confirmed and then 2 ml [id number] was injected. A good dye spread was seen in the epidural space and it was negative for any intrathecal, intraneural or intravascular spread. A total of 5 ml solution containing 10 mg Dexamethasone, and 4 ml preservative-free Normal Saline was injected slowly with intermittent aspiration.. The needle was removed intact, area was cleaned and bandage was applied. Disposition : The patient tolerated the procedure very well. The patient was transferred to the recovery room and remained stable until discharged home. The patient was given detailed discharge instructions for bleeding, infection, increased pain at the injection site, and was advised to seek immediate medical attention should significant side effects develop. The patient will be followed up with our Pain [facility] within 4 weeks duration.
[2024-03-09 13:33] VITALS: BP 130/78; PULSE 74
--- NOTE | 2024-03-09 13:37 | FL ---
EXAMINATION TYPE: FL guided pain mgmt statistic DATE OF EXAM: 03/09/2024 1:12 PM COMPARISON: Pre Operative Images if available both CT/MRI or plain film CLINICAL INDICATION: Female, 63 years old with history of Cerv Epid Inj; TECHNIQUE: FL guided pain mgmt statistic, multiple fluoroscopic images provided for procedure. Total fluoroscopy time: 26.8 seconds Total submitted images to PACS: 4 DAP: [id number] mGym2 Gycm2 uGym2 cGycm2 or equivalent. FINDINGS: Fluoroscopic images during injection for pain management demonstrate multilevel degeneration changes throughout the spine. No evidence for fracture. No acute process identified. IMPRESSION: 1. No evidence for intraoperative complication. 2. Please see the operative/procedural note for further details. [facility], , 03/09/2024 1:34 PM
== END 2024-03-09 13:50 | disposition home or self-care (01) ==
LOC: ORPAIN 11:32
DX: M54.12 Radiculopathy, cervical region
CPT/HCPCS: 62321

== ENCOUNTER → 2024-03-29 | Outpatient (CLI) | payer OTHER ==
[2024-03-29 11:28] VITALS: BP 122/77; PULSE 71; RESP 19; TEMP 98
--- NOTE | 2024-03-29 14:40 | P.PAINPG ---
PQRS Measure Charge Sheet Comment: HISTORY OF PRESENT ILLNESS: A 63 yr old female presents today w severe and chronic neck pain since 2018 secondary to post laminectomy syndrome for evaluation s/p KAVYA C6-C7 #1. Pt states she experienced >50 % pain relief x 2-3 wks s/p procedure. Pt states pain level is provoked at 7 /10 in intensity, constant, localized in the cervical spine, predominantly axial, throbbing in character w occasional shooting pain towards the RUE. Pain is provoked by lifting or hyperextension. Pain is alleviated by PT integrated w massage x 6 wks which she is currently in, heat, ice, medications, topical, use of a cane for ambulatory assistance, repositioning and rest . Intervention al procedrues include KAVYA C6-C7 x1 Medications include Percocet REVIEW OF ORGAN SYSTEMS: CONSTITUTIONAL: No fevers or chills. No recent weight loss. NEUROLOGICAL: + numbness and tingling along the distal extremities. No seizure disorders or headaches. MUSCULOSKELETAL: + pain PSYCHIATRIC: Denies current depression or suicidal thoughts. Physical Examinations : Constitutional : Cooperative , not in acute distress . Neurologic : Cranial nerve II to XII intact. No focal neurological deficits. Psychiatric : alert & oriented x 3. Matching mood & appropriate affect. Judgment & insight intact. Musculoskeletal : Cervical Spine Motor strength in the deltoid and biceps: Normal right side. Normal Left side Motor strength biceps and the wrist extensors: Normal right side . Normal left side Motor strength in the triceps muscle: Normal right side. Normal left side Deep tendon reflexes: Normal at the biceps. Normal at Brachioradialis. Normal at triceps Vertebral body tenderness to deep palpation over C6 Mustafa test positive BL C6-C7 Cervical facet loading test: positive bilaterally Spurling test: positive bilaterally Neck distraction test: positive bilaterally Giana sign: positive bilaterally Lumbar spine Motor strength lower extremities ,thigh and legs 5/5 Right side , 5/5 Left side Deep tendon reflexes : Normal Knee Jerk. Normal Ankle Jerk Vertebral body tenderness over Mustafa Test positive Lumbar facet Loading Test: positive Right / positive Left Range of motion of the lumbar spine Flexion 30 degrees, extension 10 degrees Straight Leg Raise test: Left/ Right positive at degrees Susan test: positive right / positive left. Severe tenderness over the Sacroiliac joint on the Right / Left sides Gaenslen test: positive bilaterally Seated flexion test: positive bilaterally. Sacral spine : Severe tenderness over the Sacroiliac joint: right side / left side Range of motion: Flexion of the lumbar spine <60 degrees Range of motion: Extension of the lumbar spine <20 degrees Gaenslen's Test positive Susan test: positive right side / left side Thigh Thrust Test Sacral Thrust Test Imaging: CT non contrast of the cervical spine from 10-11-23 reviewed Assessment/ Plan : Cervical post laminectomy syndrome Recommendation of KAVYA C6-C7 #2. Risks, benefits of procedure discussed and patient verbalized understanding. Admits to anti- coagulant use or medical history of diabetes. Protocol for discontinuation/ continuation of medications david procedure discussed. All questions answered. I have spent greater than 30 minutes on patient care today. Dr Maharaj was available by phone for the evaluation of this patient. The time was used to review the medical records including relevant urine studies and Prescription history (MAPs), review of the available imaging, evaluation and examination of the patient, coordination of care with the medical staff and if applicable referring physicians, as well as creation of the medical record PQRS Narrative: Smoking Status Never smoker Hx Alcohol Use (MH) Yes: social Home Medications: Ambulatory Orders FLUoxetine HCL [PROzac] 40 mg PO BID 01/03/15 traZODone HCL [Desyrel] 200 mg PO HS 01/03/15 oxyBUTYnin chloride [Ditropan XL] 15 mg PO DAILY 08/13/16 Levothyroxine Sodium [Synthroid] 25 mcg PO QAM 10/14/16 lamoTRIgine [LaMICtal] 200 mg PO QAM 02/17/18 Ibuprofen [Motrin Ib] 800 mg PO DAILY PRN 07/01/18 Vitamin B Complex 1 each PO DAILY 07/21/18 Aspirin [Adult Low Dose Aspirin EC] 81 mg PO DAILY 09/21/18 Fluticasone Nasal [place] [Flonase Nasal [place]] 1 spr EA NOSTRIL DAILY 01/19/20 Insulin Glargine,Hum.rec.anlog [Basaglar Kwikpen U-100] 30 unit SQ HS 01/19/20 Omeprazole 20 mg PO BID 01/19/20 Pyridoxine HCl (Vitamin B6) [Vitamin B-6] 100 mg PO DAILY 01/19/20 Cholecalciferol (Vitamin D3) [Vitamin D3 (50 Mcg = 2000 Iu)] 50 mcg PO DAILY 01/31/24 Cyclobenzaprine HCl 1 tab PO HS PRN 01/31/24 Diclofenac Sodium [Diclofenac Sodium 1%] 1 applic TOPICAL QID 01/31/24 INSULIN LISPRO (humaLOG) [humaLOG] 0 units SQ DIRECTED 01/31/24 Potassium Chloride ER [K-Dur 20] 1 tab PO DAILY 01/31/24 Rosuvastatin Calcium [Crestor] 5 mg PO DAILY 01/31/24 Dulaglutide [Trulicity] 3 mg SQ TU 03/06/24 Furosemide [Lasix] 20 mg PO DAILY 03/06/24 Gabapentin [Neurontin] 200 mg PO DAILY 03/06/24 HYDROcodone/APAP 7.5-325MG [[place] 7.5-325] 1 tab PO DIRECTED PRN 03/06/24 Controlled Substance Measures - Controlled Substance Measures Is patient prescribed a controlled substance at discharge?: No
== END ==
LOC: PNWHC3 10:49
PROVIDERS: ATTEND Specialist
DX: M47.812 Spondylosis without myelopathy or radiculopathy, cervical region
CPT/HCPCS: 99211

== ENCOUNTER 2024-04-20 11:47 | Day surgery (SDC) | payer OTHER ==
[2024-04-18 11:15] VITALS: BMI 35.9
[2024-04-20 12:17] LABS: Glucose,Whole Blood 130 mg/dL (70-110)
[2024-04-20 12:18] VITALS: TEMP 97.4
[2024-04-20] MEDS ORDERED: DEXAMETHASONE SOD PHOSPHATE 10 MG/ML 1 ML VIAL ONE (12:22)
[2024-04-20] MEDS ORDERED: IOPAMIDOL M200 10 ML VIAL ONE (12:22)
--- NOTE | 2024-04-20 12:35 | P.PCN ---
Date of Procedure: 04/20/24 Description of Procedure: Pre- and Post-operative Diagnosis: Cervical radiculopathy Procedure: C6-C7 Inter-Laminar Cervical Epidural Steroid Injection under biplanar fluoroscopy Surgeon: Mary Kay Gonzalez Anesthesia: Local: 1% Lidocaine, IV sedation : None. Complications: None. Estimated blood loss: None Specimens removed: None Fluoroscopic image: saved to patient electronic medical records. Indications for Procedure: The patient has been suffering from neck pain and pa in radiating to the upper extremity . Inadequate pain control with pharmacologic regimen. An inter-laminar approach cervical epidural steroid injection was scheduled for the patient. Procedure and Findings: The patient was seen and examined in the holding area. The written informed consent was obtained after explaining the risks, benefits, alternatives of the procedure to the patient. The patient was brought to the procedure room and was placed in the prone position on the operating table. A pillow was placed under the upper chest. Standard anesthesia monitoring was done through out the procedure. Timeout was completed. The skin preparation was done with ChloraPrep 2 and draping was done in usual sterile fashion. Sterile technique was observed throughout the procedure. Under fluoroscopic guidance, the C6-C7 inter-laminar space was identified. 4 ml of 1% Lidocaine was injected with a 25 gauge needle to achieve adequate local anesthesia of the skin and subcutaneous tissue. A 20 gauge, 3.5 inch Tuohy type epidural needle was placed and gradually advanced up to the epidural space using loss of resistance technique and fluoroscopic guidance. No paresthesia was noted. A negative aspiration was confirmed and then 1.5 ml Isovue was injected. A good dye spread was seen in the epidural space and it was negative for any intrathecal, intraneural or intravascular spread. A total of 5 ml solution containing 10 mg Dexamethasone, and 4 ml preservative-free Normal Saline was injected slowly with intermittent aspiration.. The needle was removed intact, area was cleaned and bandage was applied. Disposition : The patient tolerated the procedure very well. The patient was transferred to the recovery room and remained stable until discharged home. The patient was given detailed discharge instructions for bleeding, infection, increased pain at the injection site, and was advised to seek immediate medical attention should significant side effects develop. The patient will be followed up with our Pain [facility] within 4 weeks for follow-up visit.
[2024-04-20 12:58] VITALS: BP 125/69; PULSE 67; RESP 16
--- NOTE | 2024-04-21 14:17 | FL ---
Fluoroscopy INDICATION: Pain FINDINGS: Fluoroscopy time: 24.9 seconds. Total dose area product (DAP) in uGy*m?, mGy*cm? (or similar): 0.58936 Images obtained: 4. [place] directed towards the lower cervical spine region IMPRESSION: 1. Documentation of fluoroscopy. [facility] , 04/21/2024 2:14 PM
== END 2024-04-20 13:04 | disposition home or self-care (01) ==
LOC: ORPAIN 11:47
DX: M54.12 Radiculopathy, cervical region (principal); E11.9 Type 2 diabetes mellitus without complications; K21.9 Gastro-esophageal reflux disease without esophagitis; I10 Essential (primary) hypertension; M19.90 Unspecified osteoarthritis, unspecified site; I73.9 Peripheral vascular disease, unspecified; E03.9 Hypothyroidism, unspecified; Z91.048 Other nonmedicinal substance allergy status; Z88.8 Allergy status to other drugs, medicaments and biological substances; Z79.890 Hormone replacement therapy; Z79.899 Other long term (current) drug therapy; Z79.84 Long term (current) use of oral hypoglycemic drugs; Z79.82 Long term (current) use of aspirin
CPT/HCPCS: 62321; J1100; Q9966

== ENCOUNTER → 2024-05-15 | Outpatient (CLI) | payer OTHER ==
[2024-05-15 14:28] VITALS: BP 145/79; PULSE 79; RESP 16; TEMP 96.9
--- NOTE | 2024-05-15 15:22 | P.PAINPG ---
PQRS Measure Charge Sheet Comment: HISTORY OF PRESENT ILLNESS: A 63 yr old female presents today w severe and chronic neck pain since 2018 secondary to C3-C5 ACDF for evaluation s/p KAVYA C6-C7 #2. Pt states she experienced 55 % pain relief x 2-3 wks s/p procedure. Pt states pain level is provoked at 7 /10 in intensity, constant, localized in the cervical spine, predominantly axial, throbbing in character w occasional shooting pain towards the RUE. Pain is provoked by lifting or hyperextension. Pain is alleviated by PT integrated w massage x 6 wks which she is currently in, heat, ice, medications, topical, use of a cane for ambulatory assistance, repositioning and rest . Interventional procedrues include KAVYA C6-C7 x2 Medications include [place], Ibu, Tyl, Voltaren Gel REVIEW OF ORGAN SYSTEMS: CONSTITUTIONAL: No fevers or chills. No recent weight loss. NEUROLOGICAL: + numbness and tingling along the distal extremities. No seizure disorders or headaches. MUSCULOSKELETAL: + pain PSYCHIATRIC: Denies current depression or suicidal thoughts. Physical Examinations : Constitutional : Cooperative , not in acute distress . Neurologic : Cranial nerve II to XII intact. No focal neurological deficits. Psychiatric : alert & oriented x 3. Matching mood & appropriate affect. Judgment & insight intact. Musculoskeletal : Cervical Spine Motor strength in the deltoid and biceps: Normal right side. Normal Left side Motor strength biceps and the wrist extensors: Normal right side . Normal left side Motor strength in the triceps muscle: Normal right side. Normal left side Deep tendon reflexes: Normal at the biceps. Normal at Brachioradialis. Normal at triceps Vertebral body tenderness to deep palpation over C6 Mustafa test positive BL C6-C7 Cervical facet loading test: positive bilaterally Spurling test: positive bilaterally Neck distraction test: positive bilaterally Giana sign: positive bilaterally Lumbar spine Motor strength lower extremities ,thigh and legs 5/5 Right side , 5/5 Left side Deep tendon reflexes : Normal Knee Jerk. Normal Ankle Jerk Vertebral body tenderness over Mustafa Test positive Lumbar facet Loading Test: positive Right / positive Left Range of motion of the lumbar spine Flexion 30 degrees, extension 10 degrees Straight Leg Raise test: Left/ Right positive at degrees Susan test: positive right / positive left. Severe tenderness over the Sacroiliac joint on the Right / Left sides Gaenslen test: positive bilaterally Seated flexion test: positive bilaterally. Sacral spine : Severe tenderness over the Sacroiliac joint: right side / left side Range of motion: Flexion of the lumbar spine <60 degrees Range of motion: Extension of the lumbar spine <20 degrees Gaenslen's Test positive Susan test: positive right side / left side Thigh Thrust Test Sacral Thrust Test Imaging: CT non contrast of the cervical spine from 10/11/23 reviewed Assessment/ Plan : C3-C5 ACDF Recommendation of KAVYA C6-C6 #3. Risks, benefits of procedure discussed and patient verbalized understanding. Admits to anti- coagulant use or medical history of diabetes. Protocol for discontinuation/ continuation of medications david procedure discussed. All questions answered. I have spent greater than 30 minutes on patient care today. Dr Maharaj was available by phone for the evaluation of this patient. The time was used to review the medical records including relevant urine studies and Prescription history (MAPs), review of the available imaging, evaluation and examination of the patient, coordination of care with the medical staff and if applicable referring physicians, as well as creation of the medical record PQRS Narrative: Smoking Status Never smoker Narcotic Agreement Date Signed 03/29/24 Hx Alcohol Use (MH) Yes: social Home Medications: Ambulatory Orders FLUoxetine HCL [PROzac] 40 mg PO BID 01/03/15 traZODone HCL [Desyrel] 200 mg PO HS 01/03/15 oxyBUTYnin chloride [Ditropan XL] 15 mg PO DAILY 08/13/16 Levothyroxine Sodium [Synthroid] 25 mcg PO QAM 10/14/16 lamoTRIgine [LaMICtal] 200 mg PO QAM 02/17/18 Ibuprofen [Motrin Ib] 800 mg PO DAILY PRN 07/01/18 Vitamin B Complex 1 each PO DAILY 07/21/18 Aspirin [Adult Low Dose Aspirin EC] 81 mg PO DAILY 09/21/18 Fluticasone Nasal [place] [Flonase Nasal [place]] 1 spr EA NOSTRIL DAILY 01/19/20 Insulin Glargine,Hum.rec.anlog [Basaglar Kwikpen U-100] 30 unit SQ HS 01/19/20 Omeprazole 20 mg PO BID 01/19/20 Pyridoxine HCl (Vitamin B6) [Vitamin B-6] 100 mg PO DAILY 01/19/20 Cholecalciferol (Vitamin D3) [Vitamin D3 (50 Mcg = 2000 Iu)] 50 mcg PO DAILY 01/31/24 Cyclobenzaprine HCl 1 tab PO HS PRN 01/31/24 Diclofenac Sodium [Diclofenac Sodium 1%] 1 applic TOPICAL QID 01/31/24 INSULIN LISPRO (humaLOG) [humaLOG] 0 units SQ DIRECTED 01/31/24 Potassium Chloride ER [K-Dur 20] 1 tab PO DAILY 01/31/24 Rosuvastatin Calcium [Crestor] 5 mg PO DAILY 01/31/24 Dulaglutide [Trulicity] 3 mg SQ TU 03/06/24 Furosemide [Lasix] 20 mg PO DAILY 03/06/24 Gabapentin [Neurontin] 200 mg PO DAILY 03/06/24 HYDROcodone/APAP 7.5-325MG [[place] 7.5-325] 1 tab PO DIRECTED PRN 03/06/24 Controlled Substance Measures - Controlled Substance Measures Is patient prescribed a controlled substance at discharge?: No
== END ==
LOC: PNWHC3 14:15
PROVIDERS: ATTEND Specialist
DX: M54.12 Radiculopathy, cervical region (principal); M43.22 Fusion of spine, cervical region; Z91.048 Other nonmedicinal substance allergy status; Z88.8 Allergy status to other drugs, medicaments and biological substances
CPT/HCPCS: 99211

== ENCOUNTER → 2024-06-16 | Day surgery (SDC) | payer OTHER ==
[~2024-06-16] MED LIST changes: +DEXAMETHASONE SOD PHOSPHATE 10 MG/ML 1 ML VIAL ONE; +IOPAMIDOL M300 15ML VIAL ONE
[2024-06-16 11:47] VITALS: TEMP 97.1
[2024-06-16 12:01] LABS: Glucose,Whole Blood 154 mg/dL (70-110)
[2024-06-16 12:51] VITALS: RESP 16
--- NOTE | 2024-06-16 12:52 | P.PCN ---
Description of Procedure: PROCEDURE 1. Injection of radio contrast material into cervical epidural space, cervical epidurogram, interpretation of cervical epidurogram, Cervical epidural steroid injection under fluoroscopic guidance, C6-7 (fluoroscopy images available in the radiology department ) 2. Cervical epidurogram. PREOPERATIVE DIAGNOSIS: 1- Cervical Degenerative Disc Diseases 2- Cervical radiculopathy., 3-cervical spondylosis with cervical Facet arthropathy without myelopathy.4-cervical spinal stenosis POSTOPERATIVE DIAGNOSIS: : 1- Cervical Degenerative Disc Diseases , 2- Cervical radiculopathy. 3-,cervical spondylosis with cervical Facet arthropathy without myelopathy. 4-cervical spinal stenosis ANESTHESIA: Local anesthetics infiltration. In the OR continuous pulse ox, EKG, blood pressure and verbal communication was maintained. EBL : None PROCEDURE INDICATION: The patient with neck pain and radiculitis unresponsive to conservative treatment consents for procedure. Discussed the procedure, alternatives and possible complications which may include increased pain, infection, bleeding, nerve damage, paralysis all of which could be permanent. Patient understands and all questions were answered. PROCEDURE DESCRIPTION : After getting consent patient was taken to the OR , positioned in prone position and time out was completed. A pillow was placed under the patients chest to increase the cervical interlaminar space. The cervical area was prepped and draped in the usual sterile fashion. Using anterior-posterior fluoroscopy, interlaminar space was identified and the skin over this site was marked and then infiltrated with 1% lidocaine subcutaneously. Subsequently, a 20-gauge 3-1/2-inch Tuohy epidural needle was inserted and advanced toward the epidural space with the loss of resistance technique using a syringe filled with preservative-free normal saline and guided by AP and lateral fluoroscopy. Negative CSF, negative blood, negative paresthesia. The correct needle position in the epidural space was verified with the injection of 2 mL of the water soluble contrast dye [id number]-200 and observing an excellent epidurogram with the epidural spread of the dye, after repeat negative aspiration 3 mL solution was injected which consists of 1 mL of preservative-free normal saline mixed with 2 mL of 20 mg dexamethasone and a washout of epidurogram was seen. Needle was withdrawn intact, skin was cleansed, and bandages were applied. Disposition: Patient tolerated the procedure well. No complication. Patient was placed in supine position and transferred to the recovery room area in stable condition and there was no evidence of upper or lower extremity motor or sensory deficit after the procedure patient was discharged from recovery room after discharge criteria met and home discharge instructions was given by the staff and patient will follow with the pain clinic in 2-4 weeks
[2024-06-16 12:55] LABS: Glucose,Whole Blood 130 mg/dL (70-110)
--- NOTE | 2024-06-16 12:55 | FL ---
EXAMINATION TYPE: FL guided pain mgmt statistic DATE OF EXAM: 06/16/2024 CLINICAL HISTORY: Low back pain. TECHNIQUE: Fluoroscopy. COMPARISON: None. FINDINGS: Fluoroscopic guidance was provided during pain relief procedure performed by Dr. Bella . A total of 25.1 seconds of fluoroscopic time was utilized during the procedure and two spot images ar e acquired. Images acquired shows needle localization at the mid cervical spine from posterior appro ach with contrast injection. TOTAL DAP = 0.40243 mGy x m2. IMPRESSION: As Above. [facility], , 06/16/2024 12:53 PM
[2024-06-16 13:15] VITALS: BP 113/63; PULSE 69
== END ==
LOC: ORPAIN 11:20
PROVIDERS: ATTEND Pain Medicine Interventional Pain Medicine
DX: M47.22 Other spondylosis with radiculopathy, cervical region (principal); M48.02 Spinal stenosis, cervical region; M50.123 Cervical disc disorder at C6-C7 level with radiculopathy; Z79.82 Long term (current) use of aspirin; Z79.1 Long term (current) use of non-steroidal anti-inflammatories (NSAID); Z88.8 Allergy status to other drugs, medicaments and biological substances; Z88.1 Allergy status to other antibiotic agents
CPT/HCPCS: 62321; J1100; Q9967